=== PATIENT | female | born 1985 | race Two or more races ===

== ENCOUNTER 2023-08-15 09:43 | Emergency (ER) | payer OTHER ==
[~2023-08-15] VITALS: Ht 160 cm; Wt 75.7 kg
[2023-08-15 10:20] LABS: Basophils # (auto) 0.1 10 ^3/uL (0-0.2); Basophils % (auto) 1.3 % (0.0-2.0); Eosinophils # (auto) 0.2 10 ^3/uL (0-0.8); Eosinophils % (auto) 3.5 % (0.0-7.0); Hematocrit 35.9 % (36.0-46.0); Lymphocytes # (auto) 2.5 10 ^3/uL (0.4-5.4); Lymphocytes % (auto) 41.7 % (10.0-50.0); Mean Corpuscular Hemoglobin 29.4 pg (28.0-32.0); Mean Corpuscular Hgb Conc. 33.5 g/dL (32.0-36.0); Mean Corpuscular Volume 87.9 fL (80.0-100.0); Monocytes # (auto) 0.4 10 ^3/uL (0-1.3); Monocytes % (auto) 6.1 % (0.0-12.0); Neutrophils # (auto) 2.9 10 ^3/uL (1.6-8.6); Neutrophils % (auto) 47.4 % (37.0-80.0); Nucleated Red Blood Cells % 0.1 %; Red Blood Cells 4.08 10^6/uL (4.0-5.20); Red Cell Distribution Width 15.6 % (11.8-14.3); White Blood Cell 6.1 10^3/uL (4.4-10.8)
[2023-08-15 10:36] LABS: Alanine Aminotransferase 11 U/L (7-40); Albumin 3.8 g/dL (3.2-4.8); Alkaline Phosphatase 75 U/L (46-116); Anion Gap 7 (5-15); Aspartate Aminotransferase 14 U/L (13-40); BUN/Creatinine Ratio 10.4 (10.0-20.0); Bilirubin, Total 0.4 mg/dL (0.2-1.0); Blood Urea Nitrogen 8 mg/dL (9-23); Calcium 8.4 mg/dL (8.5-10.1); Carbon Dioxide 25 mmol/L (20-30); Chloride 107 mmol/L (98-107); Glucose 265 mg/dL (74-106); Potassium 3.6 mmol/L (3.5-5.1); Sodium 139 mmol/L (136-145); Total Protein 6.3 g/dL (5.7-8.2)
[2023-08-15 10:52] LABS: Urine Bacteria FEW /hpf (None Seen); Urine Blood Negative /uL (Negative); Urine Clarity Clear (Clear); Urine Color Colorless (Yellow); Urine Protein, UAD Negative (Negative); Urine Specific Gravity 1.012 (1.001-1.035); Urine Urobilinogen Normal (Negative); Urine WBC 5 /hpf (0 - 5)
[2023-08-15] MEDS ORDERED: LACT10PA2 PO (12:10)
[2023-08-15] MEDS ORDERED: GABA-1250 PO (12:10)
[2023-08-15] MEDS ORDERED: NITR-87 PO (12:10)
[2023-08-15 12:21] VITALS: BP 123/92; PULSE 97; RESP 18; TEMP 97; O2SAT 99
== END 2023-08-15 12:27 | disposition home or self-care (01) ==
LOC: ER 09:43
DX: G62.9 Polyneuropathy, unspecified (principal); N39.0 Urinary tract infection, site not specified; K59.00 Constipation, unspecified; E11.9 Type 2 diabetes mellitus without complications
CPT/HCPCS: 36415; 72040; 72100; 80053; 81001; 81025; 83690; 83880; 84484; 85025

== ENCOUNTER 2024-11-05 21:07 | Emergency (ER) | payer OTHER, MEDICAID ==
[~2024-11-05] VITALS: Ht 160 cm; Wt 80.9 kg
[~2024-11-05 21:07] MED LIST: GABA-1250 PO; LACT10PA2 PO; NITR-87 PO
[2024-11-05] MEDS: DexAMETHasone SOD PHOS 10MG/1ML VIAL INJ IM ONE (22:37)
[2024-11-05] MEDS: FAMOTIDINE 20 MG TAB PO ONE (22:37)
[2024-11-05] MEDS: diphenhdrAMINE HCL 50 MG/1 ML VL IM ONE (22:38)
[2024-11-05 22:52] VITALS: BP 112/91; PULSE 119; RESP 18; TEMP 98.6; O2SAT 99
[2024-11-05] MEDS ORDERED: FAMO20TA10 PO (23:10)
[2024-11-05] MEDS ORDERED: METH4PAK PO (23:10)
--- NOTE | 2024-11-05 23:11 | ED.PDOC ---
History of Present Illness(SKN HPI Comments This is a 39-year-old female presents to the ED chief complaint allergic reaction. Patient states unknown allergen complaining of full body rash with itchiness and burning. States has not tried any bmur-[id number] relief measures. States the worst symptom is the itchiness. Denies chest pain, difficulty breathing, shortness of breath, throat swelling, or any concerning symptoms. Chief Complaint: Allergic Reaction Time Seen by MD: 21:13 Primary Care Provider: Carrie Valadez History of Present Illness: Nurses Notes, Medications, Allergies Allergies: Coded Allergies: No Known Drug Allergy (Verified Allergy, Unknown, 08/15/23) Home Meds Active Scripts Gabapentin (Gabapentin) 300 Mg Cap, 1 CAP PO TID, #20 CAP 0 Refills Prov:PRADIP HILARIO [facility] 08/15/23 Lactulose (Lactulose) 10 Gm Brian, 10 GM PO BIDP PRN, #1 PACK Prov:PRADIP HILARIO [facility] 08/15/23 Nitrofurantoin Monohydrate Mac (Macrobid) 100 Mg Cap, 100 MG PO BID for 5 Days, #10 CAP Prov:PRADIP HILARIO [facility] 08/15/23 Information Source: Patient Mode of Arrival: Ambulatory Past Medical History PAST MEDICAL HISTORY: DM Surgical History: Denies all surgeries 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 PACKER 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 Family History Family History: Reviewed,noncontributory to illness Social History Smoker: Non-Smoker, Cigarettes Alcohol: Denies ETOH Use Drugs: Denies Drug Use Lives In: Home Constitutional: denies: chills, diaphoresis, fatigue, fever, malaise, sweats, weakness, others EENTM: denies: blurred vision, double vision, ear bleeding, ear discharge, ear drainage, ear pain, ear ringing, eye pain, eye redness, hearing loss, mouth pain, mouth swelling, nasal discharge, nose bleeding, nose congestion, nose pain, photophobia, tearing, throat pain, throat swelling, voice changes, others Respiratory: denies: cough, hemoptysis, orthopnea, SOB at rest, shortness of breath, SOB with excertion, stridor, wheezing, others Cardiovascular: denies: chest pain, dizzy spells, diaphoresis, Dyspnea on exertion, edema, irregular heart beat, left arm pain, lightheadedness, palpitations, PND, syncope, others Gastrointestinal: denies: abdomen distended, abdominal pain, blood streaked bowels, constipated, diarrhea, dysphagia, difficulty swallowing, hematemesis, melena, nausea, poor appetite, poor fluid intake, rectal bleeding, rectal pain, vomiting, others Genitourinary: denies: abnormal vagina bleeding, burning, dyspareunia, dysuria, flank pain, frequency, hematuria, incontinence, pain, , vagina discharge, urgency, others Neurological: denies: dizziness, fainting, headache, left sided numbness, left sided weakness, numbness, paresthesia, pre-existing deficit, right sided numbness, right sided weakness, seizure, speech problems, tingling, tremors, weakness, others Musculoskeletal: denies: back pain, gout, joint pain, joint swelling, muscle pain, muscle stiffness, neck pain, others Integumetry: denies: bruises, change in color, change in hair/nails, dryness, laceration, lesions, lumps, rash, wounds, others Allergic/Immunocompromised: denies: Difficulty Healing, Frequent Infections, Hives, Itching, others Hematologic/Lymphatic: denies: anemia, blood clots, easy bleeding, easy bruising, swollen glands, others Endocrine: denies: excessive hunger, excessive sweating, excessive thirst, excessive urination, flushing, intolerance to cold, intolerance to heat, une xplained weight gain, unexplained weight loss, others Psychiatric: denies: anxiety, bipolar disorder, depression, hopeless, panic disorder, schizophrenia, sleepless, suicidal, others Physical Exam General Appearance: No Apparent Distress, Normal HEENT: Normal ENT Inspection, Pharynx Normal, TMs Normal Neck: Full Range of Motion, Non-Tender Respiratory: Lungs Clear, No Accessory Muscle Use, No Respiratory Distress, Normal Breath Sounds Cardiovascular: No Edema, No JVD, No Murmur, No Gallop, Normal Peripheral Pulses, Regular Rate/Rhythm Breast Exam: Deferred Gastrointestinal: No Organomegaly, Non Tender, No Pulsatile Mass, Normal Bowel Sounds, Soft Genitalia: Deferred Pelvic: Deferred Rectal: Deferred Extremities: Normal capillary refill, Normal inspection, Normal range of motion, Non-tender, No pedal edema Musculoskeletal : Apperance: Normal Neurologic: Alert, assistant child care teacher II-XII nml as Tested, No Motor Deficits, Normal Affect, Normal Mood, No Sensory Deficits Cerebellar Function: Normal Reflexes: Normal Skin: Dry, Normal Color, Rash (Diffuse urticarial body rash mostly over trunk), Warm Lymphatic: No Adenopathy Was a procedure done? Was a procedure done?: No Differential Diagnosis (INTG) Differential Diagnosis: Cellulitis Differential Diagnosis: Atopic dermatitis X-Ray, Labs, Meds, VS Vital Signs Date Time Temp Pulse Resp B/P (MAP) Pulse Ox O2 Delivery O2 Flow Rate FiO2 11/05/24 22:52 98.6 119 18 112/91 (98) 99 98.6 11/05/24 22:52 119 18 99 Room Air 11/05/24 21:37 19 100 Room Air* 0 21 11/05/24 21:33 98.3 138 19 107/74 (85) 100 Current Medications Medications (Trade) Dose Ordered Sig/Juan Route Start Time Stop Time Status Last Admin Dexamethasone Sodium Phosphate (Decadron Injection) 10 mg ONCE ONCE IM 11/05/24 22:30 11/05/24 22:31 DC 11/05/24 22:37 Diphenhydramine HCl (Benadryl Injection) 25 mg ONCE ONCE IM 11/05/24 22:30 11/05/24 22:31 DC 11/05/24 22:38 Famotidine (Pepcid Tablet) 40 mg ONCE ONCE PO 11/05/24 22:30 11/05/24 22:31 DC 11/05/24 22:37 X-Ray, Labs, Meds, VS Comment Patient given Benadryl 25 mg IM and Decadron 10 mg IM reports improvement in symptoms requesting discharge at this time. Advised to rest increase p.o. fluids with electrolytes. Advised to follow up with PCP in 2-3 days as necessary. We will script Medrol Dosepak and famotidine for 6 days. ER return precautions given patient indicated in the standing agrees with discharge plan of care. Time of 1ST Reevaluation: 23:08 Reevaluation 1ST: Improved Patient Education/Counseling: Diagnosis, Treatment, Prognosis, Need For Follow Up Family Education/Counseling: Diagnosis, Treatment, Prognosis, Need For Follow Up Departure 1 Departure Time of Disposition: 23:09 Impression: Primary Impression: Allergic reaction Qualified Codes: T78.40XA - Allergy, unspecified, initial encounter Disposition: [facility] Condition: Stable e-Prescriptions Famotidine (PEPCID TABLET) 20 Mg Tb 1 TAB PO BID for 6 Days, #12 TAB Prov: TAMICA CHAPIN 11/05/24 Methylprednisolone (Medrol Dosepak) 4 Mg Brian 4 MG PO UD for 6 Days, #21 TAB UAD Prov: TAMICA CHAPIN 11/05/24 Discharged With: Relative Critical Care Note Critical Care Time?: No Stability Stability form required: No TAMICA CHAPIN Nov 05, 2024 23:11
== END 2024-11-05 23:50 | disposition home or self-care (01) ==
LOC: ER 21:07
DX: T78.49XA Other allergy, initial encounter (principal); E11.9 Type 2 diabetes mellitus without complications; F17.210 Nicotine dependence, cigarettes, uncomplicated; Z79.899 Other long term (current) drug therapy; X58.XXXA Exposure to other specified factors, initial encounter
CPT/HCPCS: 96372; 99284; J1100; J1200

== ENCOUNTER 2024-12-11 10:27 | Emergency (ER) | payer OTHER, MEDICAID ==
[~2024-12-11] VITALS: Ht 160 cm; Wt 84.1 kg
[~2024-12-11 10:27] MED LIST changes: +METH4PAK PO
--- NOTE | 2024-12-11 11:14 | ED.PDOC ---
SOB-HPI HPI Comments 39 y.o female with PMH of HTN and DM, presents to the ED for a chief complaint of a productive cough associated with SOB, body aches, and generalized headache that started 3 days. Patient reports symptoms developed after taking patient to the hospital for an asthmatic exacerbation. Patient denies any chest pain, fever, nausea, vomiting. 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 Family History Family History: Reviewed,noncontributory to illness Social History Smoker: Non-Smoker, Cigarettes Alcohol: Denies ETOH Use Drugs: Denies Drug Use Lives In: Home Constitutional: denies: chills, diaphoresis, fatigue, fever, malaise, sweats, weakness, others EENTM: denies: blurred vision, double vision, ear bleeding, ear discharge, ear drainage, ear pain, ear ringing, eye pain, eye redness, hearing loss, mouth pain, mouth swelling, nasal discharge, nose bleeding, nose congestion, nose pain, photophobia, tearing, throat pain, throat swelling, voice changes, others Respiratory: reports: cough, SOB at rest, shortness of breath, SOB with excertion; denies: hemoptysis, orthopnea, stridor, wheezing, others Cardiovascular: denies: chest pain, dizzy spells, diaphoresis, Dyspnea on exertion, edema, irregular heart beat, left arm pain, lightheadedness, palpitations, PND, syncope, others Gastrointestinal: denies: abdomen distended, abdominal pain, blood streaked bowels, constipated, diarrhea, dysphagia, difficulty swallowing, hematemesis, melena, nausea, poor appetite, poor fluid intake, rectal bleeding, rectal pain, vomiting, others Genitourinary: denies: abnormal vagina bleeding, burning, dyspareunia, dysuria, flank pain, frequency, hematuria, incontinence, pain, , vagina discharge, urgency, others Neurological: reports: headache; denies: dizziness, fainting, left sided numbness, left sided weakness, numbness, paresthesia, pre-existing deficit, right sided numbness, right sided weakness, seizure, speech problems, tingling, tremors, weakness, others Musculoskeletal: reports: muscle pain; denies: back pain, gout, joint pain, joint swelling, muscle stiffness, neck pain, others Integumetry: denies: bruises, change in color, change in hair/nails, dryness, laceration, lesions, lumps, rash, wounds, others Allergic/Immunocompromised: denies: Difficulty Healing, Frequent Infections, Hives, Itching, others Hematologic/Lymphatic: denies: anemia, blood clots, easy bleeding, easy bruising, swollen glands, others Endocrine: denies: excessive hunger, excessive sweating, excessive thirst, excessive urination, flushing, intolerance to cold, intolerance to heat, unexplained weight gain, unexplained weight loss, others Psychiatric: denies: anxiety, bipolar disorder, depression, hopeless, panic disorder, schizophrenia, sleepless, suicidal, others All Other Systems: Reviewed and Negative Physical Exam General Appearance: No Apparent Distress HEENT: Normal ENT Inspection, Pharynx Normal, TMs Normal Neck: Full Range of Motion, Non-Tender, Normal, Normal Inspection Respiratory: Chest Non-Tender, Lungs Clear, No Accessory Muscle Use, No Respiratory Distress, Normal Breath Sounds Cardiovascular: No Edema, No JVD, No Murmur, No Gallop, Normal Peripheral Pulses, Regular Rate/Rhythm Breast Exam: Deferred Gastrointestinal: No Organomegaly, Non Tender, No Pulsatile Mass, Normal Bowel Sounds, Soft Genitalia: Deferred Pelvic: Deferred Rectal: Deferred Extremities: No calf tenderness, Normal capillary refill, Normal inspection, Normal range of motion, Non-tender, No pedal edema Musculoskeletal : Apperance: Normal Neurologic: Alert, 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 Was a procedure done?: No Differential Dx Differential Diagnosis: Asthma, Bronchitis, COPD, Pneumonia, Respiratory Distress, URI X-Ray, Labs, Meds, VS Vital Signs Date Time Temp Pulse Resp B/P (MAP) Pulse Ox O2 Delivery O2 Flow Rate FiO2 12/11/24 13:08 100.7 12/11/24 10:50 18 97 Room Air* 0 21 12/11/24 10:50 100.0 126 18 110/84 (93) 97 Lab Test 12/11/24 13:05 Range/Units Influenza Type A Antigen Positive Negative Influenza Type B Antigen Negative Negative SARS-CoV-2 Antigen (Rapid) Negative NEGATIVE Current Medications Medications (Trade) Dose Ordered Sig/Juan Route Start Time Stop Time Status Last Admin Acetaminophen (Tylenol Tablet) 650 mg ONCE ONCE PO 12/11/24 13:15 12/11/24 13:16 DC 12/11/24 13:08 EXAMINATION: XY CHEST TWO VIEWS ROUTINE IMPRESSION: 1. No acute cardiopulmonary disease. The influenza a is positive The patient did have a fever so was given acetaminophen 650 mg by mouth The influenza B and the COVID test are negative The patient was being discharged and will follow up with the primary care doctor The patient will return to the emergency department's condition worsens. Images Reviewed?: Images reviewed and evaluated by me Time of 1ST Reevaluation: 11:10 Reevaluation 1ST: Unchanged Patient Education/Counseling: Diagnosis, Treatment, Prognosis, Need For Follow Up Family Education/Counseling: No Family Present Departure 1 Departure Time of Disposition: 13:53 Impression: Primary Impression: Influenza A Additional Impression: Fever Qualified Codes: R50.9 - Fever, unspecified Disposition: 01 HOME / SELF CARE / HOMELESS Condition: Fair e-Prescriptions Oseltamivir Phosphate (Tamiflu) 30 Mg Cp 2 CAP PO BID, #20 CAP Prov: LACI LAYTON MD 12/11/24 Discharged With: Self Critical Care Note Critical Care Time?: No Stability Stability form required: No Heart Score Heart Score: Heart Score Response (Comments) Value History N/A 0 EKG N/A 0 Age N/A 0 Risk Factors N/A 0 Troponin N/A 0 Total 0 I personally scribed for LACI LAYTON MD ([email or web address]) on 12/11/24 at 11:14. Electronically submitted by Lily Kim ([facility]). I personally scribed for LACI LAYTON MD ([email or web address]) on 12/11/24 at 12:06. Electronically submitted by Lily Kim ([facility]). LACI LAYTON MD Dec 11, 2024 11:14
--- NOTE | 2024-12-11 11:42 | DVH ---
EXAMINATION: XY CHEST TWO VIEWS ROUTINE INDICATION: cough COMPARISON: None TECHNIQUE: Frontal and lateral views of the chest FINDINGS: No focal consolidation, pleural effusion or significant pneumothorax. Normal cardiomediastinal silhou ette. Mild osseous degenerative changes. IMPRESSION: 1. No acute cardiopulmonary disease.
[2024-12-11] MEDS: ACETAMINOPHEN 325 MG TAB PO ONE (13:08)
[2024-12-11 13:41] LABS: COVID19 ANTIGEN SOFIA FIA NEGATIVE (NEGATIVE)
[2024-12-11 13:48] LABS: Rapid Influenza B Negative (Negative)
[2024-12-11 13:52] LABS: Rapid Influenza A Positive (Negative)
[2024-12-11] MEDS ORDERED: TAMIF30 PO (13:54)
[2024-12-11 14:15] VITALS: BP 122/72; PULSE 125; RESP 18; TEMP 99.2; O2SAT 97
== END 2024-12-11 14:18 | disposition home or self-care (01) ==
LOC: ER 10:32
DX: J10.1 Influenza due to other identified influenza virus with other respiratory manifestations (principal); I10 Essential (primary) hypertension; E11.9 Type 2 diabetes mellitus without complications; J45.901 Unspecified asthma with (acute) exacerbation; Z20.822 Contact with and (suspected) exposure to COVID-19
CPT/HCPCS: 36415; 71046; 87426; 87804

== ENCOUNTER 2025-02-13 15:54 | Emergency (ER) | payer OTHER, MEDICAID ==
[~2025-02-13] VITALS: Ht 160 cm; Wt 84.3 kg
[~2025-02-13 15:54] MED LIST changes: +TAMIF30 PO
--- NOTE | 2025-02-13 17:01 | DVH ---
EXAM: XR Right Ankle Complete, 3 or More Views CLINICAL INDICATION: fall/ r/o fracture TECHNIQUE: Frontal, lateral and oblique views of the right ankle. COMPARISON: None FINDINGS: BONES/JOINTS: Comminuted medially displaced fracture of the medial malleolus. Soft tissue swelling . No dislocation. SOFT TISSUES: See above. OTHER FINDINGS: . IMPRESSION: Comminuted medially displaced fracture of the medial malleolus. Soft tissue swelling.
[2025-02-13 17:24] VITALS: BP 121/83; PULSE 103; RESP 18; TEMP 97.8; O2SAT 98
[2025-02-13] MEDS: HYDROcodone-ACET 5/325MG TAB PO ONE (17:47)
[2025-02-13] MEDS ORDERED: HYDR-4902 PO (17:48)
[2025-02-13] MEDS ORDERED: IBUP-1455 PO (17:48)
--- NOTE | 2025-02-13 17:49 | ED.PDOC ---
Musculoskeletal HPI Comments 39-year-old with no pertinent MHx presents for a possible ankle fracture to the right foot. Reports she inverted her ankle while doing laundry after slipping on soap. Onset was sudden and now complains of pain with ambulation. Unable to get adequate pain relief with [id number] Tylenol or Motrin. Unable to ambulate on the affected extremity. Denies numbness tingling to the affected foot Chief Complaint: Lower Extremity Time Seen by MD: 16:26 Primary Care Provider: none Reviewed Notes: Nurses Notes, Medications, Allergies Allergies: Coded Allergies: No Known Drug Allergy (Verified Allergy, Unknown, 08/15/23) Home Meds Active Scripts Ibuprofen Micronized (Ibuprofen) 800 Mg Tab, 800 MG PO TIDWM for 10 Days, #30 TAB 0 Refills Prov:MACY SAMPSON [facility] 02/13/25 Hydrocodone-Acetaminophen (Hydrocodone Bitartrate/AC 5-325 mg) 1 Tab Tab, 1 TAB PO Q8HP PRN for 2 Days, #6 TAB 0 Refills Prov:MACY SAMPSON NP 02/13/25 Oseltamivir Phosphate (Tamiflu) 30 Mg Cp, 2 CAP PO BID, #20 CAP Prov:LACI LAYTON MD 12/11/24 Methylprednisolone (Medrol Dosepak) 4 Mg Brian, 4 MG PO UD for 6 Days, #21 TAB UAD Prov:TAMICA CHAPIN 11/05/24 Gabapentin (Gabapentin) 300 Mg Cap, 1 CAP PO TID, #20 CAP 0 Refills Prov:PRADIP HILARIO [facility] 08/15/23 Lactulose (Lactulose) 10 Gm Brian, 10 GM PO BIDP PRN, #1 PACK Prov:PRADIP HILARIO [facility] 08/15/23 Nitrofurantoin Monohydrate Mac (Macrobid) 100 Mg Cap, 100 MG PO BID for 5 Days, #10 CAP Prov:PRADIP HILARIO [facility] 08/15/23 Information Source: Patient Mode of Arrival: Wheelchair Past Medical History PAST MEDICAL HISTORY: DM, HTN 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 Family History Family History: Reviewed,noncontributory to illness Social History Smoker: Non-Smoker, Cigarettes Alcohol: Denies ETOH Use Drugs: Denies Drug Use Lives In: Home All Other Systems: Reviewed and Negative (per hpi) Physical Exam General Appearance: No Apparent Distress, Normal HEENT: Normal ENT Inspection, Pharynx Normal, TMs Normal Neck: Full Range of Motion, Non-Tender, Normal, Normal Inspection Respiratory: Chest Non-Tender, Lungs Clear, No Accessory Muscle Use, No Respiratory Distress, Normal Breath Sounds Cardiovascular: No Edema, No JVD, No Murmur, No Gallop, Normal Peripheral Pulses, Regular Rate/Rhythm Breast Exam: Deferred Gastrointestinal: No Organomegaly, Non Tender, No Pulsatile Mass, Normal Bowel Sounds, Soft Genitalia: Deferred Pelvic: Deferred Rectal: Deferred Extremities: No calf tenderness, Normal capillary refill, Normal inspection, Normal range of motion, Non-tender, No pedal edema Musculoskeletal : Location: Right Extremity Location: Ankle (Mild swelling to the lateral medial malleolus. Tenderness to palpation. Pain with plantar flexion dorsiflexion. DP 2+ and distal neuro sensation intact) Apperance: Normal Neurologic: Alert, No Motor Deficits, Normal Affect, Normal Mood, No Sensory Deficits Cerebellar Function: Normal Reflexes: Normal Skin: Dry, Normal Color, Warm Lymphatic: No Adenopathy Was a procedure done? Was a procedure done?: No Differential Diagnosis EXT Differential Diagnosis: Fracture, Sprain, Dislocation X-Ray, Labs, Meds, VS Vital Signs Date Time Temp Pulse Resp B/P (MAP) Pulse Ox O2 Delivery O2 Flow Rate FiO2 02/13/25 17:24 103 18 98 Room Air 02/13/25 17:24 97.8 103 18 121/83 (96) 98 97.8 02/13/25 16:08 97.8 103 18 121/83 (96) 98 97.8 Current Medications Medications (Trade) Dose Ordered Sig/Juan Route Start Time Stop Time Status Last Admin Acetaminophen/ Hydrocodone Bitart ([place] 5/325MG Tab) 1 tab ONCE ONCE PO 02/13/25 17:30 02/13/25 17:42 DC 02/13/25 17:47 PATIENT: JACOB MYERS LACCT: [id number]: [id number] : 1985 LOC: ER ROOM / BED: / AGE / SEX: 39 / F ADM STATUS: REG ER SERVICE [id number] ORDERING PHYSICIAN: MACY SAMPSON NP PROCEDURE(s): RANKL - R ANKLE 3 VIEW REASON: fall/ r/o fracture ORDER NUMBER(s): [id number], ACCESSION NUMBER(s): [id number] EXAM: XR Right Ankle Complete, 3 or More Views CLINICAL INDICATION: fall/ r/o fracture TECHNIQUE: Frontal, lateral and oblique views of the right ankle. COMPARISON: None FINDINGS: BONES/JOINTS: Comminuted medially displaced fracture of the medial malleolus. Soft tissue swelling. No dislocation. SOFT TISSUES: See above. OTHER FINDINGS: . IMPRESSION: Comminuted medially displaced fracture of the medial malleolus. Soft tissue swelling. ATED BY: PRADIP CRUZ MD DICTATED DATE/TIME: 02/13/251657 SIGNED BY: PRADIP CRUZ MD SIGNED DATE/TIME: 02/13/251657 CC: X-Ray, Labs, Meds, VS Comment Comminuted medially displaced fracture of the medial malleolus. Soft tissue swelling. Patient does not currently demonstrate complications of fracture such as compartment syndrome, arterial or nerve injury. Interventions: The fracture has been satisfactorily immobilized, and the patient has been given appropriate analgesia. Checked the [employer] website, no history of narcotic use within the past year. Will prescribe [place] p.o. for pain management. Education provided on possible side effects of medication including drowsiness, nausea, respiratory distress, etc. Do not drive, operate heavy machinery or make legal decisions while taking medication. Follow-up with your PMD within 24 to 48 hours. Disposition: Discharge with strict return precautions and instructions to follow up with primary MD within 24-48 hours for further evaluation including referral to an orthopedist or chiropractor assistant. Time of 1ST Reevaluation: 17:46 Reevaluation 1ST: Improved Patient Education/Counseling: Diagnosis, Treatment Family Education/Counseling: Diagnosis, Treatment Departure 1 Departure Time of Disposition: 17:46 Impression: Primary Impression: Ankle fracture Qualified Codes: S82.892A - Other fracture of left lower leg, initial encounter for closed fracture Disposition: HOME / SELF CARE / HOMELESS Condition: Fair e-Prescriptions Ibuprofen Micronized (Ibuprofen) 800 Mg Tab 800 MG PO TIDWM for 10 Days, #30 TAB 0 Refills Prov: MACY SAMPSON [facility] 02/13/25 Hydrocodone-Acetaminophen (Hydrocodone Bitartrate/AC 5-325 mg) 1 Tab Tab 1 TAB PO Q8HP PRN for 2 Days, #6 TAB 0 Refills Prov: MACY SAMPSON NP 02/13/25 Critical Care Note Critical Care Time?: No Stability Stability form required: No Heart Score Heart Score: Heart Score Response (Comments) Value History N/A 0 EKG N/A 0 Age N/A 0 Risk Factors N/A 0 Troponin N/A 0 Total 0 MACY SAMPSON NP Feb 13, 2025 17:49
== END 2025-02-13 18:16 | disposition home or self-care (01) ==
LOC: ER 15:54
DX: S82.51XA Displaced fracture of medial malleolus of right tibia, initial encounter for closed fracture (principal); E11.9 Type 2 diabetes mellitus without complications; I10 Essential (primary) hypertension; Z79.899 Other long term (current) drug therapy; Z98.890 Other specified postprocedural states; W01.0XXA Fall on same level from slipping, tripping and stumbling without subsequent striking against object, initial encounter; Y93.E2 Activity, laundry; Y92.89 Other specified places as the place of occurrence of the external cause; Y99.8 Other external cause status
CPT/HCPCS: 29515; 73610

== ENCOUNTER 2025-08-13 18:52 | Inpatient (IN) | payer OTHER, MEDICAID ==
[~2025-08-13] VITALS: Ht 160 cm; Wt 93.9 kg
[~2025-08-13 18:52] MED LIST changes: +HYDR-4902 PO; +IBUP-1455 PO
--- NOTE | 2025-08-13 19:00 | ED.PDOC ---
History of Present Illness HPI Comments 40-year-old female who is brought in by ambulance from private residence chief complaint of altered mental status. Per EMS report, family called after finding patient at around 1700, this evening, altered, convulsing, and with foam at the mouth. Upon arrival on scene, EMS personnel reports on finding patient in post ictal like state, with the patient unresponsive with eyes open. Initial blood glucose reading of low. (<20) Significant history for diabetes and takes insulin EN route, patient was given D10. Blood glucose was reassessed twice, with 2nd reading at 124 prior to then dropping again upon arrival 26. Family reports patient arriving home, eating a piece of candy and drinking 2x Sprite sodas, and taking a nap, earlier. Further history is limited, due to patient's current condition and absence of family/caretakers. Per patient she took 60 units of insulin around 2:30 p.m. and does not remember what happened after that. REVIEW OF SYSTEMS: General: No fever, no chills, or fatigue HEENT: No sore throat, no earache, no congestion, no neck pain. Cardiac: No chest pain. No palpitations. Lungs: No shortness of breath, no cough. GI: No nausea, no vomiting, no diarrhea, no constipation, no abdominal pain : No dysuria, frequency, or urgency. No hematuria. Musculoskeletal: No joint pain , no joint swelling, no extremity edema. Skin: No rash, no itching. Endocrine: Hypoglycemia Neuro: Altered mental status, no headache, no dizziness, no weakness PHYSICAL EXAM: General: Awake, alert and oriented. No acute distress. Skin: Skin in warm, dry and intact without rashes or lesions. HEENT: The head is normocephalic and atraumatic. Conjunctivae are clear without exudates or hemorrhage. Sclera is non-icteric. Neck: Normal range of motion. No JVD. Cardiac: Regular rate Respiratory: No signs of respiratory distress. No Stridor. Extremities: Upper and lower extremities are atraumatic in appearance without deformity. Neurological: The patient is awake, alert and oriented to person, place, and time with normal speech. Speech is clear. There is no facial asymmetry. Psychiatric: Appropriate mood and affect. Good judgement and insight. Time Seen by MD: 18:50 Primary Care Provider: none Reviewed Notes: Nurses Notes, Insurance Adjustor Notes, Medications, Allergies Allergies: Coded Allergies: No Known Drug Allergy (Verified Allergy, Unknown, 08/15/23) Home Meds Active Scripts Ibuprofen Micronized (Ibuprofen) 800 Mg Tab, 800 MG PO TIDWM for 10 Days, #30 TAB 0 Refills Prov:MACY SAMPSON MAILING CLERK 02/13/25 Hydrocodone-Acetaminophen (Hydrocodone Bitartrate/AC 5-325 mg) 1 Tab Tab, 1 TAB PO Q8HP PRN for 2 Days, #6 TAB 0 Refills Prov:MACY SAMPSON MAILING CLERK 02/13/25 Oseltamivir Phosphate (Tamiflu) 30 Mg Cp, 2 CAP PO BID, #20 CAP Prov:LACI LAYTON MD 12/11/24 Methylprednisolone (Medrol Dosepak) 4 Mg Brian, 4 MG PO UD for 6 Days, #21 TAB UAD Prov:TAMICA CHAPIN PET FOOD DEBONER 11/05/24 Gabapentin (Gabapentin) 300 Mg Cap, 1 CAP PO TID, #20 CAP 0 Refills Prov:PRADIP HILARIO PAC 08/15/23 Lactulose (Lactulose) 10 Gm Brian, 10 GM PO BIDP PRN, #1 PACK Prov:PRADIP HILARIO PAC 08/15/23 Nitrofurantoin Monohydrate Mac (Macrobid) 100 Mg Cap, 100 MG PO BID for 5 Days, #10 CAP Prov:PRADIP HILARIO PAC 08/15/23 Reported Medications Glipizide (Glipizide Er) 5 Mg Tab, 1 TAB PO DAILY for diabetes mellitus 08/14/25 Trazodone Hcl (Trazodone Hcl) 100 Mg Tab, 0.5-1 TAB PO QHSP PRN for insomnia 08/14/25 Pantoprazole Sodium Sesquihydr (Pantoprazole Sodium) 40 Mg Tab, 1 TAB PO DAILY 08/14/25 Paroxetine Hydrochloride (Paroxetine Hydrochloride) 20 Mg Tab, 1 TAB PO DAILY for depressive disorder 08/14/25 Losartan Potassium (Losartan Potassium) 25 Mg Tab, 1 TAB PO DAILY 08/14/25 Dapagliflozin Propanediol (Farxiga) 10 Mg Tab, 1 TAB PO DAILY 08/14/25 Information Source: Patient, Emergency Med Personnel Mode of Arrival: EMS Past Medical History PAST MEDICAL HISTORY: DM, HTN Surgical History: CATERING COOK History: No Pertinent CATERING COOK History Family History Family History: Reviewed,noncontributory to illness Social History Smoker: Non-Smoker, Cigarettes Alcohol: Denies ETOH Use Drugs: Denies Drug Use Lives In: Home Was a procedure done? Was a procedure done?: No Differential Dx Considerations may include: Differential diagnosis considered includes but not limited to hypoglycemia, intracranial hemorrhage, stroke, head injury, seizure, metabolic disturbance, electrolyte imbalance, infection, substance intoxication, psychiatric cause, other systemic illness, other X-Ray, Labs, Meds, VS Vital Signs Date Time Temp Pulse Resp B/P (MAP) Pulse Ox O2 Delivery O2 Flow Rate FiO2 08/13/25 20:00 75 20 144/76 (98) 92 08/13/25 19:46 Room Air* 0 21 08/13/25 19:46 97.4 81 14 143/97 (112) 98 97.4 08/13/25 18:52 98.7 83 18 122/86 99 98.7 Lab Test 08/13/25 21:02 08/13/25 19:46 08/13/25 10:29 Range/Units POC Glucose 115 H 32 *L 70-106 mg/dl Urine Color Light-yellow Yellow Urine Clarity Turbid H Clear Urine pH 6.0 5.0-9.0 Urine Specific [place] 1.012 1.001-1.035 Urine Protein Trace H Negative Urine Ketones Negative Negative Urine Blood Negative Negative /uL Urine Nitrite Negative Negative Urine Bilirubin Negative Negative Urine Urobilinogen Normal Negative mg/dL Urine Leukocyte Esterase 3+ Negative /uL Urine RBC 11 0 - 4 /hpf Urine Microscopic WBC 110 H 0-5 /HPF Urine Squamous Epithelial Cells Few <5 /hpf Urine Transitional Epithelial Cells Few <2 /hpf Urine Bacteria None seen None Seen /hpf Urine Glucose 4+ H Normal mg/dL Time of 1ST Reevaluation: 19:20 Reevaluation 1ST: Unchanged Patient Education/Counseling: Other (Patient's altered) Family Education/Counseling: No Family Present SEPSIS Sepsis Screen Vital Signs Date Time Temp Pulse Resp B/P (MAP) Pulse Ox O2 Delivery O2 Flow Rate FiO2 08/13/25 20:00 75 20 144/76 (98) 92 08/13/25 19:46 Room Air* 0 21 08/13/25 19:46 97.4 81 14 143/97 (112) 98 97.4 08/13/25 18:52 98.7 83 18 122/86 99 98.7 Departure 1 Departure Time of Disposition: 19:25 Impression: Primary Impression: Hypoglycemia Disposition: ADMITTED INPATIENT Condition: Stable Comments MDM: 40-year-old female with hypoglycemia after taking insulin. Patient more awake, alert in alerting p.o. however she continues to be hypoglycemic. Patient will be admitted to hospitalist service for further treatment, evaluation and monitoring. Extensive evaluation was performed in attempt to identify or rule out: (See differential diagnosis section) The following tests were ordered, and results were reviewed by me and discussed with patient: (See diagnostic results section) The following test were independently interpreted by me: N/A I reviewed and agreed with the following test results read by other providers: N/A I reviewed the following notes from the pt's past medical encounters: December 11, 2024 and February 13, 2025 encounters for cough and ankle fracture, respectively Additional information was gathered from interviewing the following independent historians: EMS personnel Discussion of management or test interpretation with external physician/other qualified health career development facilitator: N/A Addressed an acute or chronic illness that poses a threat to life or bodily function: SEVERE HYPOGLYCEMIA Decision regarding hospitalization or escalation of hospital level of care: Risk and benefits of admission for further treatment of patient's condition was considered. Due to patient's current clinical condition, high risk of decline and poor outcome if discharged and need for further inpatient management and monitoring, patient will be admitted to the hospital. Drug therapy requiring intensive monitoring for toxicity: IV DEXTROSE , IM glucagon Parenteral controlled substances: N/A Decision regarding elective major surgery with identified patient or procedure risk factors: N/A Decision regarding emergency major surgery: N/A Decision not to resuscitate or to de-escalate care because of poor prognosis: N/A Diagnosis or treatment significantly limited by social determinants of health: N/A Critical Care Note Critical Care Time?: No Stability Stability form required: No Heart Score Heart Score: Heart Score Response (Comments) Value History N/A 0 EKG N/A 0 Age N/A 0 Risk Factors N/A 0 Troponin N/A 0 Total 0 I personally scribed for ELSY SMALL MD ([email or web address]) on 08/13/25 at 19:00. Electronically submitted by Rocael Leonardo ([email or web address]). ELSY SMALL MD Aug 13, 2025 19:00
[2025-08-13] MEDS: DEXTROSE (50%) 50ML SYRG IV ONE ×3 (19:46→20:59)
[2025-08-13] MEDS: ACCU-CHEK COMFORT CURVE STRIP VI ONE ×2 (19:46→20:58)
[2025-08-13] MEDS: DEXTROSE 50% SYRINGE 50 ML IV ONE (19:54)
[2025-08-13 20:00] VITALS: BP 144/76; PULSE 75; RESP 20; O2SAT 92
[2025-08-13] MEDS: GLUCAGON EMERG KIT 1mg/1ml IM ONE (21:19)
[2025-08-13] MEDS: GLUCAGON EMERG KIT 1mg/1ml ONE (22:18)
[2025-08-13] MEDS ORDERED: DEXTROSE (50%) 50ML SYRG IV PRN (23:00)
[2025-08-13 23:20] VITALS: BP 88/48; PULSE 76; RESP 20; O2SAT 99
[2025-08-14] VITALS (9 sets, daily range): BP systolic 103–124; BP diastolic 61–70; PULSE 71–95; RESP 12–18; TEMP 98.2–98.7; O2SAT 97–100
[2025-08-14] MEDS: InsuLIN REG 1unit/0.01ml Soln (100units/ml) ONE (00:43)
[2025-08-14] MEDS: InsuLIN REG 1unit/0.01ml Soln (100units/ml) SC SCH (00:45)
[2025-08-14] MEDS: ACCU-CHEK COMFORT CURVE STRIP VI SCH (00:46)
[2025-08-14 01:44] LABS: Hematocrit 34.7 % (36.0-46.0); Hemoglobin 11.6 g/dL (12.2-16.2); Mean Corpuscular Hemoglobin 29.4 pg (28.0-32.0); Mean Corpuscular Volume 87.5 fL (80.0-100.0); Nucleated Red Blood Cells % 0.0 %
[2025-08-14 01:53] LABS: Potassium 3.8 mmol/L (3.5-5.1); Sodium 141 mmol/L (136-145)
[2025-08-14 01:54] LABS: Anion Gap 11 (5-15); Carbon Dioxide 23 mmol/L (20-31)
[2025-08-14 01:55] LABS: Calcium 8.9 mg/dL (8.7-10.4)
[2025-08-14 01:59] LABS: BUN/Creatinine Ratio 8.6 (10.0-20.0); Chloride 107 mmol/L (98-107)
[2025-08-14 02:09] LABS: Blood Urea Nitrogen 6 mg/dL (9-23); Glucose 225 mg/dL (74-106)
--- NOTE | 2025-08-14 03:51 | DVHHP2 ---
History of Present Illness Reason for Visit: Altered mental status History of Present Illness 40-year-old female presents for evaluation of altered mental status. Patient was brought in for evaluation due to acting confused with family members. On arrival patient's blood sugar was noted to be low. After administering D10 pat ient became more alert. Patient is alert and oriented x4. No headache or blurred vision. No cardiac or respiratory symptoms. Past Medical History Diabetes mellitus and hypertension Past Surgical History Family History Noncontributory Smoke: No ALCOHOL: none Drugs: None Lives: with Family Review of Systems Review of Systems Review of systems are currently negative otherwise addressed in HPI. Allergies: Coded Allergies: No Known Drug Allergy (Verified Allergy, Unknown, 08/15/23) Medications Current Medications Medications Dose Ordered Sig/Juan Route Start Time Stop Time Status Last Admin Dose Admin Diagnostic Test (Pha) 1 strip IQ4HR 08/14/25 00:00 08/14/25 03:23 1 STRIP Insulin Human Regular IQ4HR SC 08/14/25 00:00 08/14/25 00:45 4 UNITS Dextrose 50 ml UD PRN IV 08/13/25 23:00 Ondansetron HCl 4 mg Q4HP PRN IV 08/13/25 23:00 Acetaminophen 650 mg Q6HP PRN PO 08/13/25 23:00 Exam Vital Signs Vital Signs Date Time Temp Pulse Resp B/P (MAP) Pulse Ox O2 Delivery O2 Flow Rate FiO2 08/13/25 23:22 70 18 97/52 (67) 99 08/13/25 19:46 Room Air* 0 21 08/13/25 19:46 97.4 97.4 Exam Gen: 40-year-old female in no apparent distress. Skin: Warm, dry, normal color and texture, no rash. HEENT: Normocephalic atraumatic, mucous membranes moist and pink. Neck: Cervical and supraclavicular nodes normal without enlargement, trachea is midline, thyroid gland is normal without masses. Pulmonary: Clear to auscultation and percussion bilaterally. Cardiac: Regular rate and rhythm. No murmur Abdomen: Soft, nontender, nondistended, bowel sounds present all 4 quadrants, no guarding, no rigidity, no organomegaly. Extremities: No cyanosis, clubbing, no edema Neuro: Cranial nerves II through XII grossly intact, normal affect and speech, no focal motor deficits. Labs/Xrays Labs Test 08/14/25 03:19 08/14/25 01:25 Range/Units POC Glucose 139 H 70-106 mg/dl White Blood Count 9.4 4.4-10.8 10^3/uL Red Blood Count 3.96 L 4.0-5.20 10^6/uL Hemoglobin 11.6 L 12.2-16.2 g/dL Hematocrit 34.7 L 36.0-46.0 % Mean Corpuscular Volume 87.5 80.0-100.0 fL Mean Corpuscular Hemoglobin 29.4 28.0-32.0 pg Mean Corpuscular Hemoglobin Concent 33.6 32.0-36.0 g/dL Red Cell Distribution Width 14.6 H 11.8-14.3 % Platelet Count 268 140-450 10^3/uL Mean Platelet Volume 8.9 6.9-10.8 fL Neutrophils (%) (Auto) 66.9 37.0-80.0 % Lymphocytes (%) (Auto) 28.2 10.0-50.0 % Monocytes (%) (Auto) 3.8 0.0-12.0 % Eosinophils (%) (Auto) 0.4 0.0-7.0 % Basophils (%) (Auto) 0.7 0.0-2.0 % Neutrophils # (Auto) 6.3 1.6-8.6 10 ^3/uL Lymphocytes # (Auto) 2.6 0.4-5.4 10 ^3/uL Monocytes # (Auto) 0.4 0-1.3 10 ^3/uL Eosinophils # (Auto) 0 0-0.8 10 ^3/uL Basophils # (Auto) 0.1 0-0.2 10 ^3/uL Nucleated Red Blood Cells 0.0 % Sodium Level 141 136-145 mmol/L Potassium Level 3.8 3.5-5.1 mmol/L Chloride Level 107 98-107 mmol/L Carbon Dioxide Level 23 20-31 mmol/L Anion Gap 11 5-15 Blood Urea Nitrogen 6 L 9-23 mg/dL Creatinine 0.70 0.550-1.02 mg/dL Glomerular Filtration Rate Calc 111 >90 mL/min BUN/Creatinine Ratio 8.6 L 10.0-20.0 Serum Glucose 225 H 74-106 mg/dL Hemoglobin A1c 9.7 H <5.7 % A1C Calcium Level 8.9 8.7-10.4 mg/dL SEPSIS Sepsis Screen Date sepsis recognized/suspect: Aug 13, 2025 Time Sepsis recognized/suspect: 1851 Recent Procedure: No On Antibiotic Therapy: No Respiratory Rate >20: No Heart Rate >90: No Temp<36 C (96.8 F) or >38.3 C: No SBP <90 or MAP <65 mmHG: No New Acute Mental Status Change: No Is the patient on CPAP, BIPAP,: No Physician Orders Regular Diet (08/14/25 Breakfast) Urinalysis (08/13/25 22:58) Glucose Blood (Accu-Chek Comfort Curve T (08/14/25 00:00) Insulin R (Human) (Insulin R) (08/14/25 00:00) Dextrose 50% Syringe (08/13/25 23:00) Admit (08/13/25 22:58) Ondansetron Hcl (Zofran) (08/13/25 23:00) Condition: Stable (08/13/25 22:58) Acetaminophen Tablet (Tylenol Tablet) (08/13/25 23:00) Bedrest With Bathroom Privileg (08/13/25 22:58) Vital Signs Date Time Temp Pulse Resp B/P (MAP) Pulse Ox O2 Delivery O2 Flow Rate FiO2 08/13/25 23:22 70 18 97/52 (67) 99 Laboratory Tests Test 08/14/25 01:25 White Blood Count 9.4 10^3/uL (4.4-10.8) Medications Medications Dose Ordered Sig/Juan Route Start Time Stop Time Status Last Admin Dose Admin Dextrose 50 ml PRN ONCE IV 08/13/25 19:15 08/13/25 19:16 DC 08/13/25 19:46 50 ML Diagnostic Test (Pha) 1 strip IQ4HR 08/14/25 00:00 08/14/25 03:23 1 STRIP Diagnostic Test (Pha) 1 strip ONCE ONCE 08/13/25 19:15 08/13/25 19:16 DC 08/13/25 19:46 1 STRIP Glucagon 1 mg ONCE ONCE IM 08/13/25 19:00 08/13/25 19:01 DC 08/13/25 21:19 1 MG Insulin Human Regular IQ4HR SC 08/14/25 00:00 08/14/25 00:45 4 UNITS Assessment/Plan Assessment/Plan Assessment Metabolic encephalopathy Hypoglycemia Diabetes mellitus Hypertension Plan Admit the patient to Med [facility] to the hospitalist Q.4 hour Accu-Cheks Resume home medications Continue treatment per orders. Plan discussed with: Patient My Orders Orders - KRISTY HENRY Procedure Category Date Status Time Regular Diet DIET 08/14/25 Transmitted Breakfast Urinalysis LAB 08/13/25 Logged 22:58 Glucose Blood PHA 08/14/25 In Process (Accu-Chek Comfort 00:00 Insulin R (Human) PHA 08/14/25 In Process (Insulin R) 00:00 Dextrose 50% Syringe PHA 08/13/25 In Process 23:00 Admit ADMIT 08/13/25 Transmitted 22:58 Ondansetron Hcl PHA 08/13/25 In Process (Zofran) 23:00 Condition: Stable DARIELA 08/13/25 In Process 22:58 Acetaminophen Tablet PHA 08/13/25 In Process (Tylenol Tablet) 23:00 Bedrest With Bathroom DARIELA 08/13/25 In Process Privileg 22:58 Date of Service: Aug 13, 2025 Billing Provider: KRISTY HENRY Common Visit Codes: [id number] INP/OBS CARE (HIGH) KRISTY HENRY Aug 14, 2025 03:51
[2025-08-14] MEDS ORDERED: TRAZ-228 PO (08:16)
[2025-08-14] MEDS ORDERED: PARO1TAB33 PO (08:16)
[2025-08-14] MEDS ORDERED: DAPA1TAB4 PO (08:16)
[2025-08-14] MEDS ORDERED: LOS25T PO (08:16)
[2025-08-14] MEDS ORDERED: PANT40T PO (08:16)
[2025-08-14] MEDS ORDERED: GLIP-110 PO (08:16)
[2025-08-14] MEDS: ACETAMINOPHEN 325 MG TAB PO PRN (10:58)
[2025-08-14 12:02] LABS: Hepatitis B Surface Antigen Negative (Negative)
[2025-08-14 13:00] LABS: Urine Protein, UAD TRACE (Negative)
--- NOTE | 2025-08-14 16:49 | DVHPN2 ---
Subjective I am assuming the care of the patient from today onwards. This is a 40-year-old female with a known history of diabetes mellitus type 2, hypertension who was brought in by paramedics with altered mental status and hypoglycemia at home. Patient is currently blood sugars are running more than 150. 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7) H Urinalysis Test 08/13/25 10:29 Urine Color Light-yellow (Yellow) Urine Clarity Turbid (Clear) H Urine pH 6.0 (5.0-9.0) Urine Specific [place] 1.012 (1.001-1.035) Urine Protein Trace (Negative) H Urine Ketones Negative (Negative) Urine Blood Negative /uL (Negative) Urine Nitrite Negative (Negative) Urine Bilirubin Negative (Negative) Urine Urobilinogen Normal mg/dL (Negative) Urine Leukocyte Esterase 3+ /uL (Negative) Urine RBC 11 /hpf (0 - 4) Urine Microscopic WBC 110 /HPF (0-5) H Urine Squamous Epithelial Cells Few /hpf (<5) Urine Transitional Epithelial Cells Few /hpf (<2) Urine Bacteria None seen /hpf (None Seen) Urine Glucose 4+ mg/dL (Normal) H Assessment/Plan Assessment/Plan 40-year-old female with a known history of insulin-dependent diabetes mellitus, hypertension, chronic migraine headaches who initially presented to the hospital with a altered mental status and low blood sugar. At home patient was found by family members confused with a foaming from the mouth as well as convulsing, when paramedics arrived patient's blood sugar less than 20 eventually received D10 EN route with a blood sugar increased to 124. Upon arrival to ER patient's blood sugar dropped again to 24 received another D10. 1. Acute encephalopathy suspect metabolic/hypoglycemic encephalopathy 2. Episode of convulsions ruled out new grand mal seizures 3. Chronic migraine headaches 4. Insulin-dependent diabetes mellitus type 2 5. Hypertension -monitor Accu-Chek, diabetic diet as tolerated, neurology consultation for ruling out seizures. Plan discussed with: Patient My Orders Orders - THIAGO MCCALL MD Procedure Category Date Status Time * Neurology Consult CONS 08/14/25 Transmitted 15:52 Consistent DIET 08/14/25 Transmitted Carb([facility])Diabetes Dinner Date of Service: Aug 14, 2025 Billing Provider: THIAGO MCCALL MD Common Visit Codes: [id number] INP/OBS CARE(MOD) THIAGO MCCALL MD Aug 14, 2025 16:49
--- NOTE | 2025-08-14 21:33 | DVHINCON2 ---
Date of service: Aug 14, [address] Cleaning Reason for Consultation Headache/migraine History of Present Illness Ms. Puri is a 40 years old right-handed female with a history of hypertension, diabetes, obesity, she was taken to the [facility] on 08/13/2025 with a chief complaint of altered mental status. At this time, she is alert and fully oriented, he provided the following history After returning from home from outside, not eating any food, she injected insulin, but next memory was waking up in the ambulance. He was told that he passed out, and when the ambulance came over, she was found to have foam in the mouth, and the EMS personnel presumed she had seizure activity, but she denies a history of seizure disorder Since she woke up, she has been having soreness in the right neck and shoulder, constant throbbing pain, 8/10 in the right head Since the age of 13, she has periodic intense bilateral throbbing headache, mostly 8/10, with associated heightened sensitivity to lights, noise, nausea, sometimes she has spinning sensation/vertigo, she sees spots before the headache, her headache typically lasts for there is yesterday, and she has headache once every other day, she takes Tylenol and other pain medication almost every single day for headache control, she does not remember taking preventive headache treatment Urinalysis, 08/13/2025: WBC: 110, urine leukocyte esterase: 3+ WBC/HB/PLT/MCV, 08/14/2025: 9.4/11.6/268/87.5 BMP, 08/14/2025: Unremarkable Glucose, : 32, 115, 325 HGB A1c, : 9.7 Past Medical History Hypertension, diabetes, obesity Past Surgical History Family History: Diabetes mellitus G8 MOTHER G8 FATHER Family History Hypertension, diabetes, heart disease, both parents, one sister have migraine headache Social History She was tobacco smoke, but denies a history of drug/alcohol abuse. She is to children, she is not planning More Allergies: Coded Allergies: No Known Drug Allergy (Verified Allergy, Unknown, 08/15/23) Home Meds Active Scripts Ibuprofen Micronized (Ibuprofen) 800 Mg Tab, 800 MG PO TIDWM for 10 Days, #30 TAB 0 Refills Prov:MACY SAMPSON CONSUMER SAFETY INSPECTOR 02/13/25 Hydrocodone-Acetaminophen (Hydrocodone Bitartrate/AC 5-325 mg) 1 Tab Tab, 1 TAB PO Q8HP PRN for 2 Days, #6 TAB 0 Refills Prov:MACY SAMPSON CONSUMER SAFETY INSPECTOR 02/13/25 Oseltamivir Phosphate (Tamiflu) 30 Mg Cp, 2 CAP PO BID, #20 CAP Prov:LACI LAYTON MD 12/11/24 Methylprednisolone (Medrol Dosepak) 4 Mg Brian, 4 MG PO UD for 6 Days, #21 TAB UAD Prov:TAMICA CHAPIN DRYCLEANER 11/05/24 Gabapentin (Gabapentin) 300 Mg Cap, 1 CAP PO TID, #20 CAP 0 Refills Prov:PRADIP HILARIO PAC 08/15/23 Lactulose (Lactulose) 10 Gm Brian, 10 GM PO BIDP PRN, #1 PACK Prov:PRADIP HILARIO PAC 08/15/23 Nitrofurantoin Monohydrate Mac (Macrobid) 100 Mg Cap, 100 MG PO BID for 5 Days, #10 CAP Prov:PRADIP HILARIO PAC 08/15/23 Reported Medications Glipizide (Glipizide Er) 5 Mg Tab, 1 TAB PO DAILY for diabetes mellitus 08/14/25 Trazodone Hcl (Trazodone Hcl) 100 Mg Tab, 0.5-1 TAB PO QHSP PRN for insomnia 08/14/25 Pantoprazole Sodium Sesquihydr (Pantoprazole Sodium) 40 Mg Tab, 1 TAB PO DAILY 08/14/25 Paroxetine Hydrochloride (Paroxetine Hydrochloride) 20 Mg Tab, 1 TAB PO DAILY for depressive disorder 08/14/25 Losartan Potassium (Losartan Potassium) 25 Mg Tab, 1 TAB PO DAILY 08/14/25 Dapagliflozin Propanediol (Farxiga) 10 Mg Tab, 1 TAB PO DAILY 08/14/25 Current Medications Current Medications Medications (Trade) Dose Ordered Sig/Juan Route PRN Reason Start Time Stop Time Status Last Admin Diagnostic Test (Pha) (Accu-Chek Comfort Curve T) 1 strip IQ4HR 08/14/25 00:00 08/14/25 20:21 Insulin Human Regular (InsuLIN R) IQ4HR SC 08/14/25 00:00 08/14/25 20:26 Dextrose 50 ml UD PRN IV Blood Sugar LESS THAN 60 08/13/25 23:00 Ondansetron HCl (Zofran) 4 mg Q4HP PRN IV NAUSEA / VOMITING 08/13/25 23:00 Acetaminophen (Tylenol Tablet) 650 mg Q6HP PRN PO PAIN SCALE 1-3 OR TEMP>100.4 08/13/25 23:00 08/14/25 17:06 Vital Signs Vital Signs Date Time Temp Pulse Resp B/P (MAP) Pulse Ox O2 Delivery O2 Flow Rate FiO2 08/14/25 21:00 98.6 95 16 105/65 (78) 98 98.6 08/13/25 19:46 Room Air* 0 21 Physical Exam GENERAL EXAM: General: the patient is well developed and nourished. No acute distress. HEENT: Normocephalic, neck is supple, no carotid bruits. No mass. RESPIRATORY: Normal respiratory effort with symmetrical lung expansion. Lungs clear to auscultation. CARDIOVASCULAR: Regular rate and rhythm with no murmurs. S1, S2. ABDOMEN: Soft, nontender, normal bowel sound NEUROLOGICAL: MENTAL STATUS: Awake and alert. Oriented to person, place, time and general circumstances. Able to give personal history. SPEECH, LANGUAGE, HIGHER CORTICAL FUNCTION: no aphasia or dysathria. CRANIAL NERVES: #2: Intact visual carreon to confrontation. The optic discs were sharp #3,4,6: Pupils are equal, round and reactive. EOMs full and conjugate. No nystagmus. #5: Facial sensation intact in all three divisions bilaterally. Mandibular strength intact. #7: Facial muscles symmetrical and strength intact. #8: Hearing grossly normal to voice. #9,10: Uvula and soft palate rise in the midline. Swallow and voice are normal. #11: Trapezius and sternomastoid strength intact bilaterally. #12: Tongue midline. No fasciculations or atrophy. SENSATION: Sensation to touch and pinprick is normal. MOTOR: Normal tone in the upper and lower extremity. Normal muscle bulk. No fasciculations. No abnormal movements or posturing. Muscle strength of the major groups in the upper extremities is 5/5. Muscle strength of the major groups in the lower extremities is 5/5. REFLEXES: Deep tendon reflexes normal and symmetrical. No pathological reflexes. CEREBELLAR/COORDINATION: Finger to nose and heel to basurto are normal bilaterally. GAIT/STATION: deferred. Labs/Diagnostic Data Labs Test 08/14/25 20:19 08/14/25 11:06 08/14/25 01:25 08/13/25 10:29 Range/Units POC Glucose 236 H 70-106 mg/dl Hepatitis B Surface Antigen Negative Negative Hepatitis B Surface Antibody Negative Negative Hepatitis C Antibody Negative Negative HIV (1&2) Antibody Negative Negative White Blood Count 9.4 4.4-10.8 10^3/uL Red Blood Count 3.96 L 4.0-5.20 10^6/uL Hemoglobin 11.6 L 12.2-16.2 g/dL Hematocrit 34.7 L 36.0-46.0 % Mean Corpuscular Volume 87.5 80.0-100.0 fL Mean Corpuscular Hemoglobin 29.4 28.0-32.0 pg Mean Corpuscular Hemoglobin Concent 33.6 32.0-36.0 g/dL Red Cell Distribution Width 14.6 H 11.8-14.3 % Platelet Count 268 140-450 10^3/uL Mean Platelet Volume 8.9 6.9-10.8 fL Neutrophils (%) (Auto) 66.9 37.0-80.0 % Lymphocytes (%) (Auto) 28.2 10.0-50.0 % Monocytes (%) (Auto) 3.8 0.0-12.0 % Eosinophils (%) (Auto) 0.4 0.0-7.0 % Basophils (%) (Auto) 0.7 0.0-2.0 % Neutrophils # (Auto) 6.3 1.6-8.6 10 ^3/uL Lymphocytes # (Auto) 2.6 0.4-5.4 10 ^3/uL Monocytes # (Auto) 0.4 0-1.3 10 ^3/uL Eosinophils # (Auto) 0 0-0.8 10 ^3/uL Basophils # (Auto) 0.1 0-0.2 10 ^3/uL Nucleated Red Blood Cells 0.0 % Sodium Level 141 136-145 mmol/L Potassium Level 3.8 3.5-5.1 mmol/L Chloride Level 107 98-107 mmol/L Carbon Dioxide Level 23 20-31 mmol/L Anion Gap 11 5-15 Blood Urea Nitrogen 6 L 9-23 mg/dL Creatinine 0.70 0.550-1.02 mg/dL Glomerular Filtration Rate Calc 111 >90 mL/min BUN/Creatinine Ratio 8.6 L 10.0-20.0 Serum Glucose 225 H 74-106 mg/dL Hemoglobin A1c 9.7 H <5.7 % A1C Calcium Level 8.9 8.7-10.4 mg/dL Urine Color Light-yellow Yellow Urine Clarity Turbid H Clear Urine pH 6.0 5.0-9.0 Urine Specific [place] 1.012 1.001-1.035 Urine Protein Trace H Negative Urine Ketones Negative Negative Urine Blood Negative Negative /uL Urine Nitrite Negative Negative Urine Bilirubin Negative Negative Urine Urobilinogen Normal Negative mg/dL Urine Leukocyte Esterase 3+ Negative /uL Urine RBC 11 0 - 4 /hpf Urine Microscopic WBC 110 H 0-5 /HPF Urine Squamous Epithelial Cells Few <5 /hpf Urine Transitional Epithelial Cells Few <2 /hpf Urine Bacteria None seen None Seen /hpf Urine Glucose 4+ H Normal mg/dL Assessment Altered mental status secondary to hypoglycemia Presumed seizure activity, likely hypoglycemic convulsion, rule out new onset grand mal seizure Right-sided headache History of periodic headache, 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 and escalate for headache side effects discussed A trial of to IV fluid, dexamethasone 10 mg IV daily Reglan 15 mg t.i.d. for headache control off-label usage discussed [id number] pain medication for acute headache control Avoid Triptan, ergot agents for headache Avoid pain medication for headache on regular basis Regular meal and sleep schedule Good hydration (she drinks 1 gal daily) My the headache trigger discussed More recommendation per clinical course Progress: Poor This medical document was created using an electronic medical record system with [employer] dictation system. Although this document has been carefully reviewed, there may still be some phonetic and typographical errors. These areas are purely typographical due to imperfections of the software programs, and do not reflect any compromise in the patient's medical care. Plan discussed with: Patient, Other ANA CHARLES MD Aug 14, 2025 21:33
[2025-08-14] MEDS ORDERED: LORazepam 2MG/ML-1ML VIAL IV PRN (22:45)
[2025-08-14] MEDS: TOPIRAMATE 25 MG TAB PO ONE (23:37)
[2025-08-14] MEDS: SODIUM CHLORIDE 0.9% 1,000 ML IV SCH (23:37)
[2025-08-15] VITALS (7 sets, daily range): BP systolic 97–137; BP diastolic 60–87; PULSE 71–100; RESP 16–19; TEMP 97.5–98.7; O2SAT 16–98
[2025-08-15] MEDS: METOCLOPRAMIDE HCL 10 MG TAB PO SCH (05:57)
--- NOTE | 2025-08-15 10:06 | DVH ---
CLINICAL INDICATION: Seizure COMPARISON: CT BRAIN on DOS: 07/26/24 TECHNIQUE: Multisequence multiplanar MRI images of the brain were obtained without contrast. FINDINGS: No acute infarct or hemorrhage. No mass or midline shift. Small T2/FLAIR hyperintense focu s in the right thalamus, possible small chronic lacunar infarct. Ventricles and sulci are within norm al limits. No evidence of cortical dysplasia, lacey matter heterotopia, or mesial temporal sclerosis v isualized. Basal cisterns are patent. Cerebellum, brainstem, and midline structures are within normal limits. Mild mucosal thickening of the paranasal sinuses. Retention cysts versus polyps in the maxi llary sinuses. Orbits are grossly unremarkable. IMPRESSION: No evidence of acute intracranial abnormality. Nonacute findings as described above. Workstation: [email or web address]
[2025-08-15] MEDS: TOPIRAMATE 25 MG TAB PO SCH (11:21)
--- NOTE | 2025-08-15 17:37 | DVHPN2 ---
Subjective Patient is currently getting EEG, MRI brain was done which shows no evidence of any acute infarct or any other pathology. 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 Medications Current Medications Medications Dose Ordered Sig/Juan Route Start Time Stop Time Status Last Admin Dose Admin Diagnostic Test (Pha) 1 strip IQ4HR 08/14/25 00:00 08/15/25 11:45 1 STRIP Insulin Human Regular IQ4HR SC 08/14/25 00:00 08/15/25 11:49 4 UNITS Dextrose 50 ml UD PRN IV 08/13/25 23:00 Ondansetron HCl 4 mg Q4HP PRN IV 08/13/25 23:00 Acetaminophen 650 mg Q6HP PRN PO 08/13/25 23:00 08/14/25 17:06 650 MG Lorazepam 1 mg ONCE PRN IV 08/14/25 22:45 Sodium Chloride 1,000 ml @ 125 mls/hr Q8H IV 08/14/25 22:45 08/15/25 06:49 125 MLS/HR Metoclopramide HCl 15 mg Q8HR PO 08/15/25 06:00 08/15/25 05:57 15 MG Dexamethasone Sodium Phosphate 10 mg/Dextrose 51 ml @ 204 mls/hr DAILY IV 08/15/25 10:00 08/15/25 11:20 204 MLS/HR Topiramate 25 mg BID PO 08/15/25 10:00 08/15/25 11:21 25 MG Laboratory Results Laboratory Tests 08/14/25 01:25 Urinalysis Test 08/13/25 10:29 Urine Color Light-yellow (Yellow) Urine Clarity Turbid (Clear) H Urine pH 6.0 (5.0-9.0) Urine Specific [place] 1.012 (1.001-1.035) Urine Protein Trace (Negative) H Urine Ketones Negative (Negative) Urine Blood Negative /uL (Negative) Urine Nitrite Negative (Negative) Urine Bilirubin Negative (Negative) Urine Urobilinogen Normal mg/dL (Negative) Urine Leukocyte Esterase 3+ /uL (Negative) Urine RBC 11 /hpf (0 - 4) Urine Microscopic WBC 110 /HPF (0-5) H Urine Squamous Epithelial Cells Few /hpf (<5) Urine Transitional Epithelial Cells Few /hpf (<2) Urine Bacteria None seen /hpf (None Seen) Urine Glucose 4+ mg/dL (Normal) H Assessment/Plan Assessment/Plan 40-year-old female with a known history of insulin-dependent diabetes mellitus, hypertension, chronic migraine headaches who initially presented to the hospital with a altered mental status and low blood sugar. At home patient was found by family members confused with a foaming from the mouth as well as convulsing, when paramedics arrived patient's blood sugar less than 20 eventually received D10 EN route with a blood sugar increased to 124. Upon arrival to ER patient's blood sugar dropped again to 24 received another D10. 1. Acute encephalopathy suspect metabolic/hypoglycemic encephalopathy 2. Episode of convulsions ruled out new grand mal seizures 3. Chronic migraine headaches 4. Insulin-dependent diabetes mellitus type 2 5. Hypertension -Accu-Chek a.c. h.s., check hemoglobin A1c, diabetic diet as tolerated, follow up EEG -MRI brain reviewed which shows no evidence of acute pathology. - Plan discussed with: Patient Date of Service: Aug 15, 2025 Billing Provider: THIAGO MCCALL MD Common Visit Codes: [id number] INP/OBS CARE(MOD) THIAGO MCCALL MD Aug 15, 2025 17:37
[2025-08-15] MEDS ORDERED: DEXTROSE (50%) 50ML SYRG IV PRN (21:15)
--- NOTE | 2025-08-15 22:08 | DVHPN2 ---
Progress Note - Dictate Date Seen: Aug 15, 2025 Medical Necessity Reason Pt with a Central, PICC or Fol: No Subjective Ms. Puri is a 40 years old right-handed female with a history of hypertension, diabetes, obesity, she was taken to the [facility] on 08/13/2025 with a chief complaint of altered mental status. I have seen and examined the patient, I have talked to her nurse. She is doing fine in the bed, but she reports no change in her headache at all But her nurse relates that she reported better Urinalysis, 08/13/2025: WBC: 110, urine leukocyte esterase: 3+ WBC/HB/PLT/MCV, 08/14/2025: 9.4/11.6/268/87.5 BMP, 08/14/2025: Unremarkable Glucose, : 32, 115, 325 HGB A1c, 08/14/25: 9.7 MRI head, 08/15/2025: No evidence of acute intracranial abnormality. Nonacute findings as described above. vital signs Vital Sign Date Time Temp Pulse Resp B/P (MAP) Pulse Ox O2 Delivery O2 Flow Rate FiO2 08/15/25 16:47 98.7 100 19 137/87 (104) 98 98.7 08/15/25 08:10 Room Air* 0 21 Total Intake and Output 08/14/25 08/14/25 08/15/25 15:00 23:00 07:00 Intake Total 1150 ml Balance 1150 ml medications Current Medications Medications Dose Ordered Sig/Juan Route Start Time Stop Time Status Last Admin Dose Admin Ondansetron HCl 4 mg Q4HP PRN IV 08/13/25 23:00 Acetaminophen 650 mg Q6HP PRN PO 08/13/25 23:00 08/14/25 17:06 650 MG Lorazepam 1 mg ONCE PRN IV 08/14/25 22:45 Sodium Chloride 1,000 ml @ 125 mls/hr Q8H IV 08/14/25 22:45 08/15/25 20:19 125 MLS/HR Metoclopramide HCl 15 mg Q8HR PO 08/15/25 06:00 08/15/25 20:51 15 MG Dexamethasone Sodium Phosphate 10 mg/Dextrose 51 ml @ 204 mls/hr DAILY IV 08/15/25 10:00 08/15/25 11:20 204 MLS/HR Topiramate 25 mg BID PO 08/15/25 10:00 08/15/25 20:51 25 MG Diagnostic Test (Pha) 1 strip IQ4HR 08/16/25 00:00 Insulin Human Regular IQ4HR SC 08/16/25 00:00 Dextrose 50 ml UD PRN IV 08/15/25 21:15 objective General: the patient is well developed and nourished. No acute distress. MENTAL STATUS: Awake and alert. Oriented to person, place, time and general circumstances. Able to give personal history. SPEECH, LANGUAGE, HIGHER CORTICAL FUNCTION: no aphasia or dysathria. CRANIAL NERVES: Pupils are equal, round and reactive. EOMs full and conjugate. No nystagmus. Facial sensation intact in all three divisions bilaterally. Mandibular strength intact. Facial muscles symmetrical and strength intact. Tongue midline. SENSATION: Sensation to touch and pinprick is normal. MOTOR: Normal tone in the upper and lower extremity. Normal muscle bulk. No fasciculations. No abnormal movements or posturing. Muscle strength of the major groups in the extremities is 5/5. REFLEXES: Deep tendon reflexes normal and symmetrical. No pathological reflexes. CEREBELLAR/COORDINATION: Finger to nose and heel to basurto are normal bilaterally. GAIT/STATION: deferred. 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 and escalate for headache side effects discussed IV fluid, dexamethasone 10 mg IV daily Reglan 15 mg t.i.d. for headache control off-label usage discussed [id number] pain medication for acute headache control Avoid Triptan, ergot agents for headache Avoid pain medication for headache on regular basis Regular meal and sleep schedule Good hydration (she drinks 1 gal of daily) My the headache trigger discussed More recommendation per clinical course This medical document was created using an electronic medical record system with [employer] dictation system. Although this document has been carefully reviewed, there may still be some phonetic and typographical errors. These areas are purely typographical due to imperfections of the software programs, and do not reflect any compromise in the patient's medical care. Prognosis poor Plan discussed with: Patient, Other Total Time (mins): 35 ANA CHARLES MD Aug 15, 2025 22:08
[2025-08-16] VITALS (8 sets, daily range): BP systolic 106–118; BP diastolic 70–80; PULSE 72–101; RESP 17–18; TEMP 97.3–98.8; O2SAT 95–98
[2025-08-16] MEDS: ACCU-CHEK COMFORT CURVE STRIP VI SCH
[2025-08-16] MEDS: InsuLIN REG 1unit/0.01ml Soln (100units/ml) SC SCH (00:10)
[2025-08-16 07:23] LABS: Anion Gap 13 (5-15); Calcium 9.4 mg/dL (8.7-10.4); Carbon Dioxide 21 mmol/L (20-31); Chloride 106 mmol/L (98-107); Sodium 140 mmol/L (136-145)
[2025-08-16 07:29] LABS: BUN/Creatinine Ratio 14.7 (10.0-20.0); Blood Urea Nitrogen 11 mg/dL (9-23); Hematocrit 33.7 % (36.0-46.0); Hemoglobin 11.4 g/dL (12.2-16.2); Mean Corpuscular Hemoglobin 29.2 pg (28.0-32.0); Mean Corpuscular Volume 86.3 fL (80.0-100.0); Nucleated Red Blood Cells % 0.3 %
[2025-08-16 07:30] LABS: Glucose 173 mg/dL (74-106); Magnesium 2.1 mg/dL (1.6-2.6); Potassium 3.5 mmol/L (3.5-5.1)
--- NOTE | 2025-08-16 10:50 | DVHPN2 ---
Progress Note - Dictate Date Seen: Aug 16, 2025 Medical Necessity Reason Pt with a Central, PICC or Fol: No Subjective Ms. Puri is a 40 years old right-handed female with a history of hypertension, diabetes, obesity, she was taken to the [facility] on 08/13/2025 with a chief complaint of altered mental status. I have seen and examined the patient, I have talked to her nurse. She is doing fine, the headaches much better today But the glucose level was out control Urinalysis, 08/13/2025: WBC: 110, urine leukocyte esterase: 3+ WBC/HB/PLT/MCV, 08/14/2025: 9.4/11.6/268/87.5 BMP, 08/14/2025: Unremarkable Glucose, : 32, 115, 325 HGB A1c, 08/14/25: 9.7 MRI head, 08/15/2025: No evidence of acute intracranial abnormality. Nonacute findings as described above. vital signs Vital Sign Date Time Temp Pulse Resp B/P (MAP) Pulse Ox O2 Delivery O2 Flow Rate FiO2 08/16/25 09:00 98.3 86 17 115/75 (88) 98 98.3 08/16/25 08:00 Room Air* 0 21 Total Intake and Output 08/15/25 08/15/25 08/16/25 15:00 23:00 07:00 Intake Total 51 ml 1850 ml 1980 ml Balance 51 ml 1850 ml 1980 ml medications Current Medications Medications Dose Ordered Sig/Juan Route Start Time Stop Time Status Last Admin Dose Admin Ondansetron HCl 4 mg Q4HP PRN IV 08/13/25 23:00 Acetaminophen 650 mg Q6HP PRN PO 08/13/25 23:00 08/14/25 17:06 650 MG Lorazepam 1 mg ONCE PRN IV 08/14/25 22:45 Sodium Chloride 1,000 ml @ 125 mls/hr Q8H IV 08/14/25 22:45 08/16/25 05:30 125 MLS/HR Metoclopramide HCl 15 mg Q8HR PO 08/15/25 06:00 08/16/25 05:30 15 MG Dexamethasone Sodium Phosphate 10 mg/Dextrose 51 ml @ 204 mls/hr DAILY IV 08/15/25 10:00 08/15/25 11:20 204 MLS/HR Topiramate 25 mg BID PO 08/15/25 10:00 08/16/25 09:55 25 MG Diagnostic Test (Pha) 1 strip IQ4HR 08/16/25 00:00 08/16/25 08:00 1 STRIP Insulin Human Regular IQ4HR SC 08/16/25 00:00 08/16/25 08:00 2 UNITS Dextrose 50 ml UD PRN IV 08/15/25 21:15 objective General: the patient is well developed and nourished. No acute distress. MENTAL STATUS: Awake and alert. Oriented to person, place, time and general circumstances. Able to give personal history. SPEECH, LANGUAGE, HIGHER CORTICAL FUNCTION: no aphasia or dysathria. CRANIAL NERVES: Pupils are equal, round and reactive. EOMs full and conjugate. No nystagmus. Facial sensation intact in all three divisions bilaterally. Mandibular strength intact. Facial muscles symmetrical and strength intact. Tongue midline. SENSATION: Sensation to touch and pinprick is normal. MOTOR: Normal tone in the upper and lower extremity. Normal muscle bulk. No fasciculations. No abnormal movements or posturing. Muscle strength of the major groups in the extremities is 5/5. REFLEXES: Deep tendon reflexes normal and symmetrical. No pathological reflexes. CEREBELLAR/COORDINATION: Finger to nose and heel to basurto are normal bilaterally. GAIT/STATION: deferred. 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 and escalate for headache side effects discussed IV fluid, Reglan 15 mg t.i.d. for headache control off-label usage discussed D/C dexamethasone 10 mg IV daily [id number] pain medication for acute headache control Avoid Triptan, ergot agents for headache Avoid pain medication for headache on regular basis Regular meal and sleep schedule Good hydration (she drinks 1 gal of daily) Common headache triggers discussed More recommendation per clinical course This medical document was created using an electronic medical record system with [employer] computerized dictation system. Although this document has been carefully reviewed, there may still be some phonetic and typographical errors. These areas are purely typographical due to imperfections of the software programs, and do not reflect any compromise in the patient's medical care. Prognosis poor Plan discussed with: Patient, Other ANA CHARLES MD Aug 16, 2025 10:50
--- NOTE | 2025-08-16 11:32 | DVHPN2 ---
Subjective The patient is seen and examined at bedside. Complain of severe headache Reviewed: Care Plan, H&P, Labs, Medications, Previous Orders, Radiology Changes from previous H/P or p: No Changes Objective Vitals Vital Signs Date Time Temp Pulse Resp B/P (MAP) Pulse Ox O2 Delivery O2 Flow Rate FiO2 08/16/25 09:00 98.3 86 17 115/75 (88) 98 98.3 08/16/25 08:00 Room Air* 0 21 Intake/Output Intake and Output 08/16/25 07:00 Intake Total 3881 ml Balance 3881 ml Intake Oral 1830 ml IV Total 2051 ml # Voids 15 # Bowel Movements 1 General Appearance: Alert, Oriented X3, Cooperative, No acute distress HEENT: Atraumatic, PERRLA, EOMI, Mucous membr. moist/pink Neck: Supple Lungs: Clear to auscultation, Normal air movement Cardiovascular: Regular rate, Normal S1, Normal S2, No murmurs, Gallops, Rubs Neuro: Cranial nerves 3-12 NL Psych/Mental Status: Mental status NL Medications Current Medications Medications Dose Ordered Sig/Juan Route Start Time Stop Time Status Last Admin Dose Admin Ondansetron HCl 4 mg Q4HP PRN IV 08/13/25 23:00 Acetaminophen 650 mg Q6HP PRN PO 08/13/25 23:00 08/14/25 17:06 650 MG Lorazepam 1 mg ONCE PRN IV 08/14/25 22:45 Sodium Chloride 1,000 ml @ 125 mls/hr Q8H IV 08/14/25 22:45 08/16/25 05:30 125 MLS/HR Metoclopramide HCl 15 mg Q8HR PO 08/15/25 06:00 08/16/25 05:30 15 MG Topiramate 25 mg BID PO 08/15/25 10:00 08/16/25 09:55 25 MG Diagnostic Test (Pha) 1 strip IQ4HR 08/16/25 00:00 08/16/25 08:00 1 STRIP Insulin Human Regular IQ4HR SC 08/16/25 00:00 08/16/25 08:00 2 UNITS Dextrose 50 ml UD PRN IV 08/15/25 21:15 Laboratory Results Laboratory Tests 08/16/25 06:11 Chemistry Test 08/16/25 06:11 Calcium Level 9.4 mg/dL (8.7-10.4) Magnesium Level 2.1 mg/dL (1.6-2.6) Urinalysis Test 08/13/25 10:29 Urine Color Light-yellow (Yellow) Urine Clarity Turbid (Clear) H Urine pH 6.0 (5.0-9.0) Urine Specific [place] 1.012 (1.001-1.035) Urine Protein Trace (Negative) H Urine Ketones Negative (Negative) Urine Blood Negative /uL (Negative) Urine Nitrite Negative (Negative) Urine Bilirubin Negative (Negative) Urine Urobilinogen Normal mg/dL (Negative) Urine Leukocyte Esterase 3+ /uL (Negative) Urine RBC 11 /hpf (0 - 4) Urine Microscopic WBC 110 /HPF (0-5) H Urine Squamous Epithelial Cells Few /hpf (<5) Urine Transitional Epithelial Cells Few /hpf (<2) Urine Bacteria None seen /hpf (None Seen) Urine Glucose 4+ mg/dL (Normal) H Labs and/or images reviewed: Labs reviewed by me Assessment/Plan Assessment/Plan 1. Acute encephalopathy suspect metabolic/hypoglycemic encephalopathy 2. Episode of convulsions ruled out new grand mal seizures 3. Chronic migraine headaches 4. Insulin-dependent diabetes mellitus type 2 5. Hypertension Continue current management. I will give the patient toradol 30mg IV q 6hPRN for headache Continue Accu-Chek a.c. h.s., diabetic diet as tolerated, follow up EEG -MRI brain reviewed which shows no evidence of acute pathology. Continue HTN medication. Plan discussed with: Patient Date of Service: Aug 16, 2025 Billing Provider: LONG MEYER MD Common Visit Codes: [id number] INP/OBS CARE(HIGH) LONG MEYER MD Aug 16, 2025 11:32
[2025-08-16] MEDS: KETOROLAC TROMETH 30 MG/ML 1ML VIAL IV PRN (14:06)
[2025-08-16] MEDS: INSULIN LANTUS (GLARGINE) 1 /0.01ml (100units/ml) SC SCH (23:07)
[2025-08-17] VITALS (8 sets, daily range): BP systolic 106–124; BP diastolic 60–84; PULSE 69–92; RESP 16–18; TEMP 36.9; O2SAT 94–100
[2025-08-17 06:39] LABS: Anion Gap 11 (5-15); Carbon Dioxide 21 mmol/L (20-31); Sodium 144 mmol/L (136-145)
[2025-08-17 06:44] LABS: Hematocrit 30.8 % (36.0-46.0); Hemoglobin 10.5 g/dL (12.2-16.2); Mean Corpuscular Hemoglobin 29.7 pg (28.0-32.0); Mean Corpuscular Volume 87.2 fL (80.0-100.0)
[2025-08-17 06:45] LABS: BUN/Creatinine Ratio 14.5 (10.0-20.0); Blood Urea Nitrogen 11 mg/dL (9-23)
[2025-08-17 06:46] LABS: Calcium 8.1 mg/dL (8.7-10.4); Chloride 112 mmol/L (98-107); Glucose 127 mg/dL (74-106); Potassium 3.3 mmol/L (3.5-5.1)
[2025-08-17 08:25] LABS: Total Cells Counted 100.0 (100)
[2025-08-17 08:26] LABS: RBC Morphology Normal
--- NOTE | 2025-08-17 11:01 | DVHDS2 ---
Discharge Summary Date of Admission Aug 13, 2025 at 22:58 Date of Discharge: Aug 17, 2025 Admitting Diagnosis 1. Acute encephalopathy suspect metabolic/hypoglycemic encephalopathy 2. Episode of convulsions ruled out new grand mal seizures 3. Chronic migraine headaches 4. Insulin-dependent diabetes mellitus type 2 5. Hypertension Labs/Diagnostic Data: Laboratory Results Test 08/17/25 07:50 08/17/25 06:03 08/16/25 06:11 08/14/25 11:06 POC Glucose 138 mg/dl (70-106) White Blood Count 8.8 10^3/uL (4.4-10.8) Red Blood Count 3.54 10^6/uL (4.0-5.20) Hemoglobin 10.5 g/dL (12.2-16.2) Hematocrit 30.8 % (36.0-46.0) Mean Corpuscular Volume 87.2 fL (80.0-100.0) Mean Corpuscular Hemoglobin 29.7 pg (28.0-32.0) Mean Corpuscular Hemoglobin Concent 34.1 g/dL (32.0-36.0) Red Cell Distribution Width 14.2 % (11.8-14.3) Platelet Count 240 10^3/uL (140-450) Mean Platelet Volume 9.4 fL (6.9-10.8) Neutrophils (%) (Auto) % (37.0-80.0) Lymphocytes (%) (Auto) % (10.0-50.0) Monocytes (%) (Auto) % (0.0-12.0) Basophils (%) (Auto) % (0.0-2.0) Neutrophils # (Auto) 10 ^3/uL (1.6-8.6) Lymphocytes # (Auto) 10 ^3/uL (0.4-5.4) Monocytes # (Auto) 10 ^3/uL (0-1.3) Differential Total Cells Counted 100.0 (100) Neutrophils % (Manual) 36 (37.0-80.0) Band Neutrophils % (Manual) 1 Lymphocytes % (Manual) 54 (10.0-50.0) Monocytes % (Manual) 4 (0-12) Eosinophils % (Manual) 1 (0-7) Basophils % (Manual) 0 (0.0-2.0) Metamyelocytes % (manual) 0 Myelocytes % (Manual) 0 Promyelocytes % (Manual) 0 Blast Cells % (Manual) 0 Reactive Lymphocytes 4 Platelet Estimate Adequate Red Blood Cell Morphology Normal Sodium Level 144 mmol/L (136-145) Potassium Level 3.3 mmol/L (3.5-5.1) Chloride Level 112 mmol/L (98-107) Carbon Dioxide Level 21 mmol/L (20-31) Anion Gap 11 (5-15) Blood Urea Nitrogen 11 mg/dL (9-23) Creatinine 0.76 mg/dL (0.550-1.02) Glomerular Filtration Rate Calc 100 mL/min (>90) BUN/Creatinine Ratio 14.5 (10.0-20.0) Serum Glucose 127 mg/dL (74-106) Calcium Level 8.1 mg/dL (8.7-10.4) Eosinophils (%) (Auto) 0.0 % (0.0-7.0) Eosinophils # (Auto) 0 10 ^3/uL (0-0.8) Basophils # (Auto) 0.1 10 ^3/uL (0-0.2) Nucleated Red Blood Cells 0.3 % Magnesium Level 2.1 mg/dL (1.6-2.6) Hepatitis B Surface Antigen Negative (Negative) Hepatitis B Surface Antibody Negative (Negative) Hepatitis C Antibody Negative (Negative) HIV (1&2) Antibody Negative (Negative) Test 08/14/25 01:25 08/13/25 10:29 Hemoglobin A1c 9.7 % A1C (<5.7) Urine Color Light-yellow (Yellow) Urine Clarity Turbid (Clear) Urine pH 6.0 (5.0-9.0) Urine Specific [place] 1.012 (1.001-1.035) Urine Protein Trace (Negative) Urine Ketones Negative (Negative) Urine Blood Negative /uL (Negative) Urine Nitrite Negative (Negative) Urine Bilirubin Negative (Negative) Urine Urobilinogen Normal mg/dL (Negative) Urine Leukocyte Esterase 3+ /uL (Negative) Urine RBC 11 /hpf (0 - 4) Urine Microscopic WBC 110 /HPF (0-5) Urine Squamous Epithelial Cells Few /hpf (<5) Urine Transitional Epithelial Cells Few /hpf (<2) Urine Bacteria None seen /hpf (None Seen) Urine Glucose 4+ mg/dL (Normal) Other Laboratory Tests 08/17/25 06:03 Brief Hx & Hospital Course: This is a 40 years old female come into emergency department because of altered mental status. The patient was brought in because she was acting confused with family member. Upon arrival the patient's blood glucose was 60. After a mystery diff 10 the patient become more alert oriented. The patient apparently accidentally gave herself 60 units of Lantus. The patient said she was busy doing something and forget to check her blood glucose before she gives herself 60 units of Lantus. She also did not eat for almost the whole day prior to this insulin was given herself. The patient subsequently doing better. Blood glucose better controlled. The patient was started back on sliding scale insulin and Lantus 10 units subQ q.h.s.. The patient per glucose today is in the 100s range. Patient also complained of severe headache. Since the age of 13, she has periodic intense bilateral throbbing headache, mostly 8/10, with associated heightened sensitivity to lights, noise, nausea, sometimes she has spinning sensation/vertigo, she sees spots before the headache, her headache typically lasts for there is yesterday, and she has headache once every other day, she takes Tylenol and other pain medication almost every single day for headache control, she does not remember taking preventive headache treatment. The patient was given steroid and also Toradol and topiramate. The patient tolerated medication well and headache improved. Neurologist was consulted. Dr. Martines recommend:Supportive treatment No preventive seizure treatment. Topiramate 25 mg b.i.d. and escalate for headache side effects discussed.IV fluid, Reglan 15 mg t.i.d. for headache control off-label usage discussed. D/C dexamethasone 10 mg IV daily. [id number] pain medication for acute headache control. Avoid Triptan, ergot agents for headache. Avoid pain medication for headache on regular basis. Regular meal and sleep schedule. Good hydration (she drinks 1 gal of daily). CT scan of her head is negative for acute CVA. EEG done showed no seizure activity. I discharge the patient home today. Advised the patient to see her primary care physician 1-2 weeks. Advised the patient to discuss with PCP regarding to her blood glucose at home. Activity as tolerated. Diet per home diet. Educated the patient regarding supplement for hypoglycemia. Advised the patient always carry candy and the sugar tab in her purse in case she had hypoglycemia. Educated her to recognize symptoms of hypoglycemia such as shaking and trembling, heart palpitation, extreme hunger, sweating profusely, confused, difficult concentration, dizziness. Physical exam: HEENT: Normocephalic atraumatic pupils equal react to light and accommodation. Extraocular muscles intact, conjunctiva pink, oropharynx moist, no thrush, no exudate. Lymphatic: No lymphadenopathy Cardiovascular exam: S1, S2 was heard. No murmurs, rubs, gallops Lung: Clear on auscultation bilaterally, no wheeze, rale, rhonchi. GI: Abdominal soft, nondistended, nontenderness, positive bowel sounds. Extremity: No crepitus, cyanosis, edema. Pedal pulses present bilateral. Full range of motion. Skin: Normal turgor, no rash. Psych: Alert, oriented x3. Neurology: No focal deficits, cranial nerve II to XII grossly intact. This medical document was created using an electronic medical record system with [employer] computerized dictation system. Although this document has been carefully reviewed, there may still be some phonetic and typographical errors. These areas are purely typographical due to imperfections of the software programs, and do not reflect any compromise in the patient's medical care. Condition at Discharge: Stable Final Diagnosis/Problems List 1. Acute encephalopathy suspect metabolic/hypoglycemic encephalopathy 2. Episode of convulsions ruled out new grand mal seizures 3. Chronic migraine headaches 4. Insulin-dependent diabetes mellitus type 2 5. Hypertension Discharge Disposition: Home Discharge Instruct/Medications Diet: Consistent carbohydrate Activity: No Restrictions, As Tolerated Follow Up/Referral: PCP 1-2 weeks Medications: Resume home meds. Scheduled Dapagliflozin Propanediol (Farxiga), 1 TAB PO DAILY, (Reported) Gabapentin (Gabapentin), 1 CAP PO TID Glipizide (Glipizide Er), 1 TAB PO DAILY, (Reported) Ibuprofen Micronized (Ibuprofen), 800 MG PO TIDWM Losartan Potassium (Losartan Potassium), 1 TAB PO DAILY, (Reported) Methylprednisolone (Medrol Dosepak), 4 MG PO UD Nitrofurantoin Monohydrate Mac (Macrobid), 100 MG PO BID Oseltamivir Phosphate (Tamiflu), 2 CAP PO BID Pantoprazole Sodium Sesquihydr (Pantoprazole Sodium), 1 TAB PO DAILY, (Reported) Paroxetine Hydrochloride (Paroxetine Hydrochloride), 1 TAB PO DAILY, (Reported) Topiramate (Topiramate), 1 TAB PO BID Scheduled PRN Hydrocodone-Acetaminophen (Hydrocodone Bitartrate/AC 5-325 mg), 1 TAB PO Q8HP PRN Lactulose (Lactulose), 10 GM PO BIDP PRN Metoclopramide Hcl (Reglan), 10 MG PO TIDPRN PRN Trazodone Hcl (Trazodone Hcl), 0.5-1 TAB PO QHSP PRN for insomnia, (Reported) Discharge Statement: "Patient was advised to return to the ER or call 911 if any headaches, dizziness, shortness of breath, chest pain, abdominal pain, bleeding, fevers, or worsening of medical condition. Patient was counseled about treatment plan, medications, possible side effects, patientverbalized understanding. All questions were answered to the best of my ability. This discharge took greater then 30 minutes in planning, reviewing documentation, counseling the patient, and discussing with other team members." ASSESSMENT ASSESSMENT Assessment hypoglycemia Acute encephalopathy Date of Service: Aug 17, 2025 Billing Provider: LONG MEYER MD Common Visit Codes: [id number] DISCH DAY >30min LONG MEYER MD Aug 17, 2025 11:01
[2025-08-17] MEDS: POTASSIUM CHL 20 Meq TABLET PO ONE ×2 (12:27→12:55)
[2025-08-17] MEDS: ONDANSETRON HCL 4 MG/2 ML VIAL IV PRN (20:12)
--- NOTE | 2025-08-17 21:28 | DVHPN2 ---
Progress Note - Dictate Date Seen: Aug 17, 2025 Medical Necessity Reason Pt with a Central, PICC or Fol: No Subjective Ms. Puri is a 40 years old right-handed female with a history of hypertension, diabetes, obesity, she was taken to the [facility] on 08/13/2025 with a chief complaint of altered mental status. I have seen and examined the patient, I have talked to her nurse. She is doing fine, the headache doing fine, but he used Toradol IV for headache once He wants to go home now Urinalysis, 08/13/2025: WBC: 110, urine leukocyte esterase: 3+ WBC/HB/PLT/MCV, 08/14/2025: 9.4/11.6/268/87.5 BMP, 08/14/2025: Unremarkable Glucose, : 32, 115, 325 HGB A1c, 08/14/25: 9.7 EEG, 08/16/25: Normal MRI head, 08/15/2025: No evidence of acute intracranial abnormality. Nonacute findings as described above. vital signs Vital Sign Date Time Temp Pulse Resp B/P (MAP) Pulse Ox O2 Delivery O2 Flow Rate FiO2 08/17/25 21:00 98.3 92 17 106/72 (83) 100 98.3 08/17/25 08:00 Room Air* 0 21 Total Intake and Output 08/16/25 08/16/25 08/17/25 15:00 23:00 07:00 Intake Total 375 ml 2166 ml Balance 375 ml 2166 ml medications Current Medications Medications Dose Ordered Sig/Juan Route Start Time Stop Time Status Last Admin Dose Admin Ondansetron HCl 4 mg Q4HP PRN IV 08/13/25 23:00 08/17/25 20:12 4 MG Acetaminophen 650 mg Q6HP PRN PO 08/13/25 23:00 08/14/25 17:06 650 MG Lorazepam 1 mg ONCE PRN IV 08/14/25 22:45 Sodium Chloride 1,000 ml @ 125 mls/hr Q8H IV 08/14/25 22:45 08/17/25 14:45 125 MLS/HR Metoclopramide HCl 15 mg Q8HR PO 08/15/25 06:00 08/17/25 14:38 15 MG Topiramate 25 mg BID PO 08/15/25 10:00 08/17/25 09:31 25 MG Diagnostic Test (Pha) 1 strip IQ4HR 08/16/25 00:00 08/17/25 20:13 1 STRIP Insulin Human Regular IQ4HR SC 08/16/25 00:00 08/17/25 20:16 6 UNITS Dextrose 50 ml UD PRN IV 08/15/25 21:15 Ketorolac Tromethamine 30 mg Q6HPRN PRN IV 08/16/25 12:00 08/21/25 11:59 08/17/25 20:12 30 MG Insulin Glargine 10 units HS SC 08/16/25 22:30 08/16/25 23:07 10 UNITS objective General: the patient is well developed and nourished. No acute distress. MENTAL STATUS: Awake and alert. Oriented to person, place, time and general circumstances. Able to give personal history. SPEECH, LANGUAGE, HIGHER CORTICAL FUNCTION: no aphasia or dysathria. CRANIAL NERVES: Pupils are equal, round and reactive. EOMs full and conjugate. No nystagmus. Facial sensation intact in all three divisions bilaterally. Mandibular strength intact. Facial muscles symmetrical and strength intact. Tongue midline. SENSATION: Sensation to touch and pinprick is normal. MOTOR: Normal tone in the upper and lower extremity. Normal muscle bulk. No fasciculations. No abnormal movements or posturing. Muscle strength of the major groups in the extremities is 5/5. REFLEXES: Deep tendon reflexes normal and symmetrical. No pathological reflexes. CEREBELLAR/COORDINATION: Finger to nose and heel to basurto are normal bilaterally. GAIT/STATION: deferred. laboratory and microbiology Laboratory Tests 08/17/25 06:03 Test 08/17/25 06:03 Range/Units Serum Glucose 127 H 74-106 mg/dL Problem List Altered mental status secondary to hypoglycemia Presumed seizure activity, likely hypoglycemic convulsion, rule out new onset grand mal seizure Right-sided headache History of periodic headache, likely migraine headache with aura, basilar migraine Medication overuse headache Assessment/Plan Monitoring Supportive treatment No preventive seizure treatment Topiramate 25 mg b.i.d. and escalate for headache side effects discussed IV fluid, Reglan 15 mg t.i.d. for headache control off-label usage discussed D/C dexamethasone 10 mg IV daily [id number] pain medication for acute headache control Avoid Triptan, ergot agents for headache Avoid pain medication for headache on regular basis Regular meal and sleep schedule Good hydration (she drinks 1 gal of daily) Common headache triggers discussed Okay to discharge home from a neurologic point of view More recommendation per clinical course This medical document was created using an electronic medical record system with [employer] dictation system. Although this document has been carefully reviewed, there may still be some phonetic and typographical errors. These areas are purely typographical due to imperfections of the software programs, and do not reflect any compromise in the patient's medical care. Prognosis poor Plan discussed with: Patient, Other ANA CHARLES MD Aug 17, 2025 21:28
--- NOTE | 2025-08-17 23:18 | DVHPN2 ---
Subjective The patient is seen and examined at bedside. Complain of severe headache Reviewed: Care Plan, H&P, Labs, Medications, Previous Orders, Radiology Objective Vitals Vital Signs Date Time Temp Pulse Resp B/P (MAP) Pulse Ox O2 Delivery O2 Flow Rate FiO2 08/17/25 21:00 98.3 92 17 106/72 (83) 100 98.3 08/17/25 08:00 Room Air* 0 21 Intake/Output Intake and Output 08/17/25 06:59 Intake Total 2541 ml Balance 2541 ml Intake Oral 791 ml IV Total 1750 ml # Voids 11 General Appearance: Alert, Oriented X3, Cooperative, No acute distress HEENT: Atraumatic, PERRLA, EOMI, Mucous membr. moist/pink Neck: Supple Lungs: Clear to auscultation, Normal air movement Cardiovascular: Regular rate, Normal S1, Normal S2, No murmurs, Gallops, Rubs Neuro: Cranial nerves 3-12 NL Psych/Mental Status: Mental status NL Medications Current Medications Medications Dose Ordered Sig/Juan Route Start Time Stop Time Status Last Admin Dose Admin Ondansetron HCl 4 mg Q4HP PRN IV 08/13/25 23:00 08/17/25 20:12 4 MG Acetaminophen 650 mg Q6HP PRN PO 08/13/25 23:00 08/14/25 17:06 650 MG Lorazepam 1 mg ONCE PRN IV 08/14/25 22:45 Sodium Chloride 1,000 ml @ 125 mls/hr Q8H IV 08/14/25 22:45 08/17/25 14:45 125 MLS/HR Metoclopramide HCl 15 mg Q8HR PO 08/15/25 06:00 08/17/25 21:27 15 MG Topiramate 25 mg BID PO 08/15/25 10:00 08/17/25 21:27 25 MG Diagnostic Test (Pha) 1 strip IQ4HR 08/16/25 00:00 08/17/25 20:13 1 STRIP Insulin Human Regular IQ4HR SC 08/16/25 00:00 08/17/25 20:16 6 UNITS Dextrose 50 ml UD PRN IV 08/15/25 21:15 Ketorolac Tromethamine 30 mg Q6HPRN PRN IV 08/16/25 12:00 08/21/25 11:59 08/17/25 20:12 30 MG Insulin Glargine 10 units HS SC 08/16/25 22:30 08/17/25 21:27 10 UNITS Laboratory Results Laboratory Tests 08/17/25 06:03 Chemistry Test 08/17/25 06:03 Calcium Level 8.1 mg/dL (8.7-10.4) L Urinalysis Test 08/13/25 10:29 Urine Color Light-yellow (Yellow) Urine Clarity Turbid (Clear) H Urine pH 6.0 (5.0-9.0) Urine Specific [place] 1.012 (1.001-1.035) Urine Protein Trace (Negative) H Urine Ketones Negative (Negative) Urine Blood Negative /uL (Negative) Urine Nitrite Negative (Negative) Urine Bilirubin Negative (Negative) Urine Urobilinogen Normal mg/dL (Negative) Urine Leukocyte Esterase 3+ /uL (Negative) Urine RBC 11 /hpf (0 - 4) Urine Microscopic WBC 110 /HPF (0-5) H Urine Squamous Epithelial Cells Few /hpf (<5) Urine Transitional Epithelial Cells Few /hpf (<2) Urine Bacteria None seen /hpf (None Seen) Urine Glucose 4+ mg/dL (Normal) H Assessment/Plan Assessment/Plan 1. Acute encephalopathy suspect metabolic/hypoglycemic encephalopathy 2. Episode of convulsions ruled out new grand mal seizures 3. Chronic migraine headaches 4. Insulin-dependent diabetes mellitus type 2 5. Hypertension Continue current management. I will give the patient toradol 30mg IV q 6hPRN for headache Continue Accu-Chek a.c. h.s., diabetic diet as tolerated, follow up EEG -MRI brain reviewed which shows no evidence of acute pathology. Continue HTN medication. My Orders Orders - LONG MEYER MD Procedure Category Date Status Time Discharge DISCHARGE 08/17/25 Transmitted 10:58 LONG MEYER MD Aug 17, 2025 23:18
--- NOTE | 2025-08-18 00:22 | DVHEEG2 ---
Neurology EEG Procedural Note Procedural Note EXAM DATE: 08/15/2025 REFERRING DOCTOR: Dr. Charles TECHNIQUE: Eighteen channels of EEG, 2 channels of EOG, and 1 channel of EKG were recorded using the [employer] 10/20 system. CLINICAL DATA: The patient was referred for an EEG evaluation for the evidence of seizure disorder. MEDICATIONS: Sedated chart BACKGROUND ACTIVITY: While the patient was awake, the background activity consisted of well regulated 11-12 Hz rhythmic waveforms, symmetrically distributed over both posterior quadrants and was reactive to eye opening. ACTIVATION: Hyperventilation: Not done Photic Stimulation: No photic convulsive response Sleep: Not seen IMPRESSION: This is a normal EEG. No focal, lateralized, or epileptiform features are noted. If clinically indicated to rule out a seizure disorder, recommend repeat EEG with sleep deprivation. The EKG channel showed a regular heart rate of 90 per minute. [place] [address] ANA CHARLES MD Aug 18, 2025 00:22
[2025-08-18] MEDS ORDERED: TOPI25TA84 PO (10:43)
[2025-08-18] MEDS ORDERED: METO-281 PO (10:43)
== END 2025-08-17 23:25 | disposition home or self-care (01) | DRG 637 ==
LOC: EDBD 18:52 → EDUNIT# 18:52 → ER 18:58 → OVERFLOW 22:58 → EAST 08-14 23:40
PROVIDERS: ADMIT Internal Medicine; ATTEND Internal Medicine
DX: E11.649 Type 2 diabetes mellitus with hypoglycemia without coma (principal); G93.41 Metabolic encephalopathy; I10 Essential (primary) hypertension; R56.9 Unspecified convulsions; E66.9 Obesity, unspecified; Z20.822 Contact with and (suspected) exposure to COVID-19; G44.40 Drug-induced headache, not elsewhere classified, not intractable; G43.909 Migraine, unspecified, not intractable, without status migrainosus; Z83.3 Family history of diabetes mellitus; Z82.49 Family history of ischemic heart disease and other diseases of the circulatory system; Z79.4 Long term (current) use of insulin; Z68.36 Body mass index [BMI] 36.0-36.9, adult
CPT/HCPCS: 36415; 70551; 80048; 81001; 82962; 83036; 83735; 85007; 85025; 85027; 86703; 86706; 86803; 87340; 95819; 96374; G0378; J1100; J1815; J1885; J2405; J7060

== ENCOUNTER 2025-09-11 15:27 | Emergency (ER) | payer OTHER, MEDICAID ==
[~2025-09-11] VITALS: Ht 160 cm; Wt 92.4 kg
[~2025-09-11 15:27] MED LIST changes: +DAPA1TAB4 PO; +GLIP-110 PO; +LOS25T PO; +METO-281 PO; +PANT40T PO; +PARO1TAB33 PO; +TOPI25TA84 PO; +TRAZ-228 PO
[2025-09-11] MEDS ORDERED: AMOX500T3 PO (16:04)
[2025-09-11] MEDS ORDERED: IBUP-1456 PO (16:04)
--- NOTE | 2025-09-11 16:04 | ED.PDOC ---
Eye-HPI HPI Comments 40-year-old female presents to the ER with a prior MHx of seizures, diabetes and the chief complaint of tooth pain. Patient reports on cracking her tooth weeks ago and made an appointment with Milton marquez on 09/11/25, but yesterday started to have left facial swelling and increase of pain. When the patient went to her dentist's appointment, they noticed that the patient's face was swollen and informed her that they are unable to extract the tooth at the left lower quadrant until she has antibiotics from the ER. Denies any other symptoms at this time. Chief Complaint: Tooth Pain Time Seen by MD: 16:00 Primary Care Provider: none Reviewed Notes: Nurses Notes, Medications, Allergies Allergies: Coded Allergies: No Known Drug Allergy (Verified Allergy, Unknown, 08/15/23) Home Meds Active Scripts Ibuprofen (Ibuprofen) 800 Mg Tab, 1 TAB PO TID for 10 Days, #30 TAB 0 Refills Prov:MACY SAMPSON NP 09/11/25 Amoxicillin Trihydrate (Amoxicillin) 500 Mg Tab, 1 TAB PO BID for 10 Days, #20 TAB 0 Refills Prov:MACY SAMPSON NP 09/11/25 Metoclopramide Hcl (Reglan) 10 Mg Tab, 10 MG PO TIDPRN PRN, #30 TAB Prov:LONG MEYER MD 08/18/25 Topiramate (Topiramate) 25 Mg Tab, 1 TAB PO BID, #60 TAB 5 Refills Prov:LONG MEYER MD 08/18/25 Ibuprofen Micronized (Ibuprofen) 800 Mg Tab, 800 MG PO TIDWM for 10 Days, #30 TAB 0 Refills Prov:MACY SAMPSON NP 02/13/25 Hydrocodone-Acetaminophen (Hydrocodone Bitartrate/AC 5-325 mg) 1 Tab Tab, 1 TAB PO Q8HP PRN for 2 Days, #6 TAB 0 Refills Prov:MACY SAMPSON NP 02/13/25 Oseltamivir Phosphate (Tamiflu) 30 Mg Cp, 2 CAP PO BID, #20 CAP Prov:LACI LAYTON MD 12/11/24 Methylprednisolone (Medrol Dosepak) 4 Mg Brian, 4 MG PO UD for 6 Days, #21 TAB UAD Prov:TAMICA CHAPIN 12/7/24 Gabapentin (Gabapentin) 300 Mg Cap, 1 CAP PO TID, #20 CAP 0 Refills Prov:PRADIP HILARIO PAC 08/15/23 Lactulose (Lactulose) 10 Gm Brian, 10 GM PO BIDP PRN, #1 PACK Prov:PRADIP HILARIO [facility] 08/15/23 Nitrofurantoin Monohydrate Mac (Macrobid) 100 Mg Cap, 100 MG PO BID for 5 Days, #10 CAP Prov:PRADIP HILARIO [facility] 08/15/23 Reported Medications Glipizide (Glipizide Er) 5 Mg Tab, 1 TAB PO DAILY for diabetes mellitus 08/14/25 Trazodone Hcl (Trazodone Hcl) 100 Mg Tab, 0.5-1 TAB PO QHSP PRN for insomnia 08/14/25 Pantoprazole Sodium Sesquihydr (Pantoprazole Sodium) 40 Mg Tab, 1 TAB PO DAILY 08/14/25 Paroxetine Hydrochloride (Paroxetine Hydrochloride) 20 Mg Tab, 1 TAB PO DAILY for depressive disorder 08/14/25 Losartan Potassium (Losartan Potassium) 25 Mg Tab, 1 TAB PO DAILY 08/14/25 Dapagliflozin Propanediol (Farxiga) 10 Mg Tab, 1 TAB PO DAILY 08/14/25 Information Source: Patient Mode of Arrival: Ambulatory Timing: Weeks Duration: Since onset Prehospital treatment: None Quality: Pain Lids: Normal Conjunctiva: Normal Cornea: Normal Pupils: Normal EOM: Normal Fundus: Normal Slit lamp exam: Normal Anterior chamber: Normal Mouth: Normal ENT Ear Exam: Normal Nose: Normal Sinuses: Normal Oropharynx: Normal Onset: Spontaneous Throat Exposed to: None Associated signs and symptoms: Tooth Pain Past Medical History PAST MEDICAL HISTORY: DM, HTN 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 Family History Family History: Reviewed,noncontributory to illness, Unknown Social History Smoker: Non-Smoker, Cigarettes Alcohol: Denies ETOH Use Drugs: Denies Drug Use Lives In: Home Constitutional: denies: chills, diaphoresis, fatigue, fever, malaise, sweats, weakness, others EENTM: reports: mouth pain, mouth swelling; denies: blurred vision, double vision, ear bleeding, ear discharge, ear drainage, ear pain, ear ringing, eye pain, eye redness, hearing loss, nasal discharge, nose bleeding, nose congestion, nose pain, photophobia, tearing, throat pain, throat swelling, voice changes, others Respiratory: denies: cough, hemoptysis, orthopnea, SOB at rest, shortness of breath, SOB with excertion, stridor, wheezing, others Cardiovascular: denies: chest pain, dizzy spells, diaphoresis, Dyspnea on exertion, edema, irregular heart beat, left arm pain, lightheadedness, palpitations, PND, syncope, others Gastrointestinal: denies: abdomen distended, abdominal pain, blood streaked bowels, constipated, diarrhea, dysphagia, difficulty swallowing, hematemesis, melena, nausea, poor appetite, poor fluid intake, rectal bleeding, rectal pain, vomiting, others Genitourinary: denies: abnormal vagina bleeding, burning, dyspareunia, dysuria, flank pain, frequency, hematuria, incontinence, pain, , vagina discharge, urgency, others Neurological: denies: dizziness, fainting, headache, left sided numbness, left sided weakness, numbness, paresthesia, pre-existing deficit, right sided numbness, right sided weakness, seizure, speech problems, tingling, tremors, weakness, others Musculoskeletal: denies: back pain, gout, joint pain, joint swelling, muscle pain, muscle stiffness, neck pain, others Integumetry: denies: bruises, change in color, change in hair/nails, dryness, laceration, lesions, lumps, rash, wounds, others Allergic/Immunocompromised: denies: Difficulty Healing, Frequent Infections, Hives, Itching, others Hematologic/Lymphatic: denies: anemia, blood clots, easy bleeding, easy bruising, swollen glands, others Endocrine: denies: excessive hunger, excessive sweating, excessive thirst, excessive urination, flushing, intolerance to cold, intolerance to heat, unexplained weight gain, unexplained weight loss, others Psychiatric: denies: anxiety, bipolar disorder, depression, hopeless, panic disorder, schizophrenia, sleepless, suicidal, others All Other Systems: Reviewed and Negative Physical Exam Exam Comments Chipped tooth 18. TTP tooth 19. Mild gingivitis no drainage airway intact General Appearance: No Apparent Distress, Normal HEENT: Normal ENT Inspection, Pharynx Normal, TMs Normal Neck: Full Range of Motion, Non-Tender, Normal, Normal Inspection Respiratory: Chest Non-Tender, Lungs Clear, No Accessory Muscle Use, No Respiratory Distress, Normal Breath Sounds Cardiovascular: No Edema, No JVD, No Murmur, No Gallop, Normal Peripheral Pulses, Regular Rate/Rhythm Breast Exam: Deferred Gastrointestinal: No Organomegaly, Non Tender, No Pulsatile Mass, Normal Bowel Sounds, Soft Genitalia: Deferred Pelvic: Deferred Rectal: Deferred Extremities: No calf tenderness, Normal capillary refill, Normal inspection, Normal range of motion, Non-tender, No pedal edema Musculoskeletal : Apperance: Normal 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 Was a procedure done?: No EENT DIFF Eye: N/A Ear: N/A Nose: N/A Mouth: Other (Antibiotics for a infected tooth) Sore Throat: N/A X-Ray, Labs, Meds, VS Vital Signs Date Time Temp Pulse Resp B/P (MAP) Pulse Ox O2 Delivery O2 Flow Rate FiO2 09/11/25 16:36 97.9 86 16 115/82 (93) 99 97.9 09/11/25 16:36 68 16 99 Room Air 09/11/25 15:28 97.6 88 16 112/84 99 97.6 X-Ray, Labs, Meds, VS Comment 40-year-old female presents to the ER with a prior MHx of seizures, diabetes and the chief complaint of tooth pain. Patient arrives alert and oriented, ABC's intact, afebrile, vital signs stable, saturating well in room air Dental Carries/Tooth Pain Patient not immunosuppressed. No evidence of tooth fracture, avulsion, or bleeding socket. No e/o retropharangeal abscess, peritonsillar abscess, Ludwigs angina, periapical abscess. No e/o gingival hyperplasia or concern for drug reaction. Afebrile, vitals within normal limits. Exam as above and airway fully patent and in no respiratory distress. The patient has no neck swelling, no dysphonia or hoarseness, no lymphadenopathy. No trismus or swollen tongue to suggest Bebeto's angina. No overt e/o peritonsillar abscess or retropharyngeal abscess. No overt e/o deep space infection; nontoxic appearing and tolerating PO. Non-focal neuro exam with low suspicion for Lemierres. No pain with percussion, low suspicion for periapical abscess. No mastoid tenderness so do not suspect mastoiditis and no pain with manipulation of ear to suggest otitis externa. Trial antibiotics with cautious return precautions discussed w/ full understanding. Additional MDM Review of External, Non-ED records: External records reviewed. Discussion with independent historian (EMS, family) history obtained from the patient/parents (if applicable) at bedside Chronic conditions affecting care: None Social determinants of health affecting care: None Consideration of admission (observation or admission): I considered escalation of care to admission for this patient, however given the reassuring workup, the patient is safe for outpatient management. Discussion with the Radiology: No Tests considered but not performed: Prescription medication considered but not given: 12 lead EKG interpretation: Time of 1ST Reevaluation: 16:00 Reevaluation 1ST: Unchanged Patient Education/Counseling: Diagnosis, Treatment Family Education/Counseling: Diagnosis, Treatment SEPSIS Sepsis Screen Date sepsis recognized/suspect: Sep 11, 2025 Time Sepsis recognized/suspect: 1528 Recent Procedure: No On Antibiotic Therapy: No Respiratory Rate >20: No Heart Rate >90: No Temp<36 C (96.8 F) or >38.3 C: No SBP <90 or MAP <65 mmHG: No New Acute Mental Status Change: No Is the patient on CPAP, BIPAP,: No Vital Signs Date Time Temp Pulse Resp B/P (MAP) Pulse Ox O2 Delivery O2 Flow Rate FiO2 09/11/25 16:36 97.9 86 16 115/82 (93) 99 97.9 09/11/25 16:36 68 16 99 Room Air 09/11/25 15:28 97.6 88 16 112/84 99 97.6 Departure 1 Departure Time of Disposition: 16:01 Impression: Primary Impression: Tooth pain Disposition: 01 HOME / SELF CARE / HOMELESS Condition: Stable e-Prescriptions Ibuprofen (Ibuprofen) 800 Mg Tab 1 TAB PO TID for 10 Days, #30 TAB 0 Refills Prov: MACY SAMPSON NP 09/11/25 Amoxicillin Trihydrate (Amoxicillin) 500 Mg Tab 1 TAB PO BID for 10 Days, #20 TAB 0 Refills Prov: MACY SAMPSON NP 09/11/25 Discharged With: Self Critical Care Note Critical Care Time?: No Stability Stability form required: No Heart Score Heart Score: Heart Score Response (Comments) Value History N/A 0 EKG N/A 0 Age N/A 0 Risk Factors N/A 0 Troponin N/A 0 Total 0 I personally scribed for MACY SAMPSON NP ([email or web address]) on 09/11/25 at 16:04. Electronically submitted by Andrés Soto ([email or web address]). MACY SAMPSON NP Sep 11, 2025 16:04
[2025-09-11 16:36] VITALS: BP 115/82; PULSE 68; RESP 16; TEMP 97.9; O2SAT 99
== END 2025-09-11 16:38 | disposition home or self-care (01) ==
LOC: ER 15:27
DX: K08.89 Other specified disorders of teeth and supporting structures (principal); R22.0 Localized swelling, mass and lump, head; I10 Essential (primary) hypertension; E11.9 Type 2 diabetes mellitus without complications; Z79.84 Long term (current) use of oral hypoglycemic drugs; Z79.899 Other long term (current) drug therapy